=== PATIENT | male | born 1980 | race Caucasian/White ===

== ENCOUNTER 2016-07-27 13:59 | Emergency (ER) | payer OTHER ==
[2016-07-27] MEDS ORDERED: ADACEL/BOOSTRIX VACCINE (DIPHTH/PERTUSS/ACELL/TETANUS)0.5ML SYR (90715) As Ordered ONE (14:57)
--- NOTE | 2016-07-27 15:06 | EDDOCDS ---
Nurse's Notes [facility] Name: Jayro Palacios Age: 36 yrs Sex: Male : 1980 Arrival Date: 07/27/2016 Time: 13:59 Bed PD Private MD: [facility] - Adults Diagnosis: Abrasion of left hand Presentation: 07/27 14:08 Presenting complaint: Patient states: he cut his left hand on the trunk of his car kcs about half an hour ago. Adult Sepsis Screening: The patient does not have new or worsening altered mentation. Patient's respiratory rate is less than 22. Systolic blood pressure is greater than 100. Patient has a qSOFA score of 0- Negative Sepsis Screen. Suicide/Homicide risk assessment- the patient denies having any suicidal and/or homicidal ideations and does not present with any other emotional, behavioral or mental health complaints. Status: Patient is not a elevator service mechanic or dependent. Transition of care: patient was not received from another setting of care. 14:08 Acuity: RAYMON Level 4 kcs 14:08 Method Of Arrival: Walkin/Carried/Asstd kcs Triage Assessment: 14:10 General: Appears comfortable, well developed, well nourished, well groomed, Behavior is kcs cooperative, pleasant. Pain: Location: left hand Pain currently is 10 out of 10 on a pain scale. HIV screening NA for this visit Offered previously. Neurological: Level of Consciousness is awake, alert. Respiratory: Airway is patent Respiratory effort is even, unlabored, Respiratory pattern is regular, symmetrical. Derm: Skin is intact, is healthy with good turgor, Skin is dry, Skin is normal. Injury Description: Laceration sustained to base of left index finger is not bleeding. Historical: - Allergies: PENICILLINS (Anaphylaxis); - Home Meds: 1. Albuterol MDI PRN last use 2 weeks ago 2. Keppra 1,000 mg Oral tab 1 tab tid - PMHx: Asthma; Bipolar disorder; Seizure Disorder; - PSHx: none; - Immunization history:: Last tetanus immunization: unknown. - Family history: Not pertinent. - Social history: Smoking status: Patient uses tobacco products, heavy tobacco smoker. No barriers to communication noted, The patient speaks fluent Setswana. - : The pt / caregiver states he / she is not on anticoagulants. Home medication list is obtained from the patient, [employer] import data. - Exposure Risk Screening:: None identified. Screenin:04 Screening information is obtained from the patient. Fall risk: No risks identified. bcj Assistance ADL's: requires no assistance with activities of daily living. Abuse/DV Screen: The patient / caregiver reports he/she is: not in a situation that causes fear, pain or injury. Nutritional screening: No deficits noted. Advance Directives: Currently, there is no health care proxy. home support is adequate. Assessment: 15:04 General: Appears in no apparent distress. bcj Vital Signs: 14:01 BP 162 / 79; Pulse 89; Resp 20; Temp 97.9(O); Pulse Ox 97% ; Weight 81.65 kg; Height 6 cmb ft. 0 in. (182.88 cm); Pain 10/10; 14:01 Body Mass Index 24.41 (81.65 kg, 182.88 cm) cmb Vitals: 14:01 Log In Time: July 27, 2016 at 13:59. cmb ED Course: 14:00 Patient visited by Alysia Patiño. cmb 14:00 Patient moved to Waiting cmb 14:01 [facility] is Private Physician. cmb 14:02 Patient moved to Pre RCE cmb 14:09 Triage Initiated kcs 14:13 2X2 applied. kcs 14:43 Patient moved to Triage 2 ar3 14:48 Olivier Lee PA is PHCP. btw 14:48 Lyssa Kohler MD is Attending Physician. btw 14:48 Patient visited by Olivier Lee PA. btw 14:53 [facility] is Referral Physician. btw 14:58 Patient moved to PD2 / 27 btw 15:04 No apparent distress. Resting quietly. Awaiting disposition. bcj 15:04 The patient / caregiver is instructed regarding the plan of care and ED course. bcj 15:04 No IV's were initiated during this patient's visit. No procedures done that require bcj assistance. 15:05 Patient visited by Byron Mariee RN. j Administered Medications: 15:01 Drug: Tetanus- Diptheria-Acellular Pertussis 0.5 ml [diphth,pertussis(acel),tetanus 2.5 mb9 Lf unit-8 mcg-5 Lf/0.5mL IM syringe (0.5 mL)] {Informatics Physician Liaison: [employer]. Exp: 09/04/2018. Lot #: [id number]. } Route: IM; Site: left deltoid; Order Results: There are currently no results for this order. Outcome: 14:53 Discharge ordered by Provider. btw 15:04 Discharge Assessment: patient administered narcotics - no. The following [facility] Discharge criteria are identified: None. Discharged to home ambulatory. Condition: stable. Discharge instructions given to patient, Instructed on discharge instructions, follow up and referral plans. medication usage. No special radiology studies were completed. Property :Personal belongings accompany Pt. 15:05 Patient left the ED. j Signatures: Kylah Mast, RN RN Byron Barton RN RN bcj Carlee Bradshaw, OLIVING MACHINE OPERATOR OLIVING MACHINE OPERATOR ar3 Olivier Lee PA PA btw Alysia Patiño cmb Cesar Tony,RN RN mb9 MTDD
--- NOTE | 2016-07-27 15:06 | EDDOCDS ---
Physician Documentation [facility] Name: Jayro Palacios Age: 36 yrs Sex: Male : 1980 Arrival Date: 07/27/2016 Time: 13:59 Bed PD Private MD: [facility] - Adults Disposition: 07/27/16 14:53 Discharged to Home/Self Care. Impression: Abrasion of left hand. - Condition is Stable. - Discharge Instructions: Abrasion, VIS, Tetanus, Diphtheria (Td) - CDC. - Medication Reconciliation, Local Pharmacy Hours form. - Follow up: [facility] - Adults; When: Call to arrange an appointment; Reason: Wound/Symptom Recheck, Further diagnostic work-up, Recheck today's complaints, Continuance of care. - Problem is new. - Symptoms are unchanged. Historical: - Allergies: PENICILLINS (Anaphylaxis); - Home Meds: 1. Albuterol MDI PRN last use 2 weeks ago 2. Keppra 1,000 mg Oral tab 1 tab tid - PMHx: Asthma; Bipolar disorder; Seizure Disorder; - PSHx: none; - Immunization history:: Last tetanus immunization: unknown. - Family history: Not pertinent. - Social history: Smoking status: Patient uses tobacco products, heavy tobacco smoker. No barriers to communication noted, The patient speaks fluent Mozambican. - : The pt / caregiver states he / she is not on anticoagulants. Home medication list is obtained from the patient, [employer] import data. - Exposure Risk Screening:: None identified. Vital Signs: 07/27 14:01 BP 162 / 79; Pulse 89; Resp 20; Temp 97.9(O); Pulse Ox 97% ; Weight 81.65 kg / 180.01 cmb lbs; Height 6 ft. 0 in. (182.88 cm); Pain 10/10; 14:01 Body Mass Index 24.41 (81.65 kg, 182.88 cm) cmb MDM: 14:53 Tetanus- Diptheria-Acellular Pertussis 0.5 ml IM once; Routine booster 10-64yrs, >64 btw with child contact [employer] ordered. 15:05 Financial registration complete. lg Administered Medications: 15:01 Drug: Tetanus- Diptheria-Acellular Pertussis 0.5 ml [diphth,pertussis(acel),tetanus 2.5 mb9 Lf unit-8 mcg-5 Lf/0.5mL IM syringe (0.5 mL)] {Director Long Term Care: [employer]. Exp: 09/04/2018. Lot #: [id number]. } Route: IM; Site: left deltoid; Signatures: Kylah Mast RN RN Byron Barton RN RN Chidi Leary, Olivier Nick lg, PA PA btw Belles, Michael RN mb9 MTDD
--- NOTE | 2016-07-29 16:07 | EDDOCDS ---
Physician Documentation [facility] Name: Jayro Palacios Age: 36 yrs Sex: Male : 1980 Arrival Date: 07/27/2016 Time: 13:59 Bed PD Private MD: [facility] - Adults Disposition: 07/27/16 14:53 Discharged to Home/Self Care. Impression: Abrasion of left hand. - Condition is Stable. - Discharge Instructions: Abrasion, VIS, Tetanus, Diphtheria (Td) - CDC. - Medication Reconciliation, Local Pharmacy Hours form. - Follow up: [facility] - Adults; When: Call to arrange an appointment; Reason: Wound/Symptom Recheck, Further diagnostic work-up, Recheck today's complaints, Continuance of care. - Problem is new. - Symptoms are unchanged. Historical: - Allergies: PENICILLINS (Anaphylaxis); - Home Meds: 1. Albuterol MDI PRN last use 2 weeks ago 2. Keppra 1,000 mg Oral tab 1 tab tid - PMHx: Asthma; Bipolar disorder; Seizure Disorder; - PSHx: none; - Immunization history:: Last tetanus immunization: unknown. - Family history: Not pertinent. - Social history: Smoking status: Patient uses tobacco products, heavy tobacco smoker. No barriers to communication noted, The patient speaks fluent [place]. - : The pt / caregiver states he / she is not on anticoagulants. Home medication list is obtained from the patient, [employer] import data. - Exposure Risk Screening:: None identified. Vital Signs: 07/27 14:01 BP 162 / 79; Pulse 89; Resp 20; Temp 97.9(O); Pulse Ox 97% ; Weight 81.65 kg / 180.01 cmb lbs; Height 6 ft. 0 in. (182.88 cm); Pain 10/10; 14:01 Body Mass Index 24.41 (81.65 kg, 182.88 cm) cmb MDM: 14:53 Tetanus- Diptheria-Acellular Pertussis 0.5 ml IM once; Routine booster 10-64yrs, >64 btw with child contact [employer] ordered. 15:05 Financial registration complete. lg 16:50 [facility] Payment Agreement was scanned into [employer] and attached to record. lg 07/28 09:43 T-Sheet-- Draft Copy was scanned into [employer] and attached to record. gb Administered Medications: 07/27 15:01 Drug: Tetanus- Diptheria-Acellular Pertussis 0.5 ml [diphth,pertussis(acel),tetanus 2.5 mb9 Lf unit-8 mcg-5 Lf/0.5mL IM syringe (0.5 mL)] {Ceramic Chemist: [employer]. Exp: 09/04/2018. Lot #: [id number]. } Route: IM; Site: left deltoid; Signatures: Kylah Mast, RN RN Byron Barton RN RN bcSamara Recinos, Reg Reg gb Chidi Jaramillo, Reg Reg lg Olivier Lee PA PA btw Belles, Michael RN mb9 The chart was reviewed and I authenticate all verbal orders and agree with the evaluation and treatment provided.Attachments: 16:50 [facility] [place] Agreement 07/28 09:43 T-Sheet-- Draft Copy gb Chart Complete MTDD
--- NOTE | 2016-07-29 16:07 | EDDOCDS ---
Nurse's Notes [facility] Name: Jayro Palacios Age: 36 yrs Sex: Male : 1980 Arrival Date: 07/27/2016 Time: 13:59 Bed PD Private MD: [facility] - Adults Diagnosis: Abrasion of left hand Presentation: 07/27 14:08 Presenting complaint: Patient states: he cut his left hand on the trunk of his car kcs about half an hour ago. Adult Sepsis Screening: The patient does not have new or worsening altered mentation. Patient's respiratory rate is less than 22. Systolic blood pressure is greater than 100. Patient has a qSOFA score of 0- Negative Sepsis Screen. Suicide/Homicide risk assessment- the patient denies having any suicidal and/or homicidal ideations and does not present with any other emotional, behavioral or mental health complaints. Status: Patient is not a patient services coordinator or dependent. Transition of care: patient was not received from another setting of care. 14:08 Acuity: RAYMON Level 4 kcs 14:08 Method Of Arrival: Walkin/Carried/Asstd kcs Triage Assessment: 14:10 General: Appears comfortable, well developed, well nourished, well groomed, Behavior is kcs cooperative, pleasant. Pain: Location: left hand Pain currently is 10 out of 10 on a pain scale. HIV screening NA for this visit Offered previously. Neurological: Level of Consciousness is awake, alert. Respiratory: Airway is patent Respiratory effort is even, unlabored, Respiratory pattern is regular, symmetrical. Derm: Skin is intact, is healthy with good turgor, Skin is dry, Skin is normal. Injury Description: Laceration sustained to base of left index finger is not bleeding. Historical: - Allergies: PENICILLINS (Anaphylaxis); - Home Meds: 1. Albuterol MDI PRN last use 2 weeks ago 2. Keppra 1,000 mg Oral tab 1 tab tid - PMHx: Asthma; Bipolar disorder; Seizure Disorder; - PSHx: none; - Immunization history:: Last tetanus immunization: unknown. - Family history: Not pertinent. - Social history: Smoking status: Patient uses tobacco products, heavy tobacco smoker. No barriers to communication noted, The patient speaks fluent Tajik. - : The pt / caregiver states he / she is not on anticoagulants. Home medication list is obtained from the patient, [employer] import data. - Exposure Risk Screening:: None identified. Screenin:04 Screening information is obtained from the patient. Fall risk: No risks identified. bcj Assistance ADL's: requires no assistance with activities of daily living. Abuse/DV Screen: The patient / caregiver reports he/she is: not in a situation that causes fear, pain or injury. Nutritional screening: No deficits noted. Advance Directives: Currently, there is no health care proxy. home support is adequate. Assessment: 15:04 General: Appears in no apparent distress. bcj Vital Signs: 14:01 BP 162 / 79; Pulse 89; Resp 20; Temp 97.9(O); Pulse Ox 97% ; Weight 81.65 kg; Height 6 cmb ft. 0 in. (182.88 cm); Pain 10/10; 14:01 Body Mass Index 24.41 (81.65 kg, 182.88 cm) cmb Vitals: 14:01 Log In Time: July 27, 2016 at 13:59. cmb ED Course: 14:00 Patient visited by Alysia Patiño. cmb 14:00 Patient moved to Waiting cmb 14:01 [facility] is Private Physician. cmb 14:02 Patient moved to Pre RCE cmb 14:09 Triage Initiated kcs 14:13 2X2 applied. kcs 14:43 Patient moved to Triage 2 ar3 14:48 Olivier Lee PA is PHCP. btw 14:48 Lyssa Kohler MD is Attending Physician. btw 14:48 Patient visited by Olivier Lee PA. btw 14:53 [facility] is Referral Physician. btw 14:58 Patient moved to PD2 / 27 btw 15:04 No apparent distress. Resting quietly. Awaiting disposition. bcj 15:04 The patient / caregiver is instructed regarding the plan of care and ED course. bcj 15:04 No IV's were initiated during this patient's visit. No procedures done that require bcj assistance. 15:05 Patient visited by Byron Mariee RN. bcj 16:50 [facility] Payment Agreement was scanned into [employer] and attached to record. 01 09:43 T-Sheet-- Draft Copy was scanned into [employer] and attached to record. gb Administered Medications: 07/27 15:01 Drug: Tetanus- Diptheria-Acellular Pertussis 0.5 ml [diphth,pertussis(acel),tetanus 2.5 mb9 Lf unit-8 mcg-5 Lf/0.5mL IM syringe (0.5 mL)] {Reel Winder: [employer]. Exp: 09/04/2018. Lot #: [id number]. } Route: IM; Site: left deltoid; Order Results: There are currently no results for this order. Outcome: 14:53 Discharge ordered by Provider. btw 15:04 Discharge Assessment: patient administered narcotics - no. The following High Risk [facility] Discharge criteria are identified: None. Discharged to home ambulatory. Condition: stable. Discharge instructions given to patient, Instructed on discharge instructions, follow up and referral plans. medication usage. No special radiology studies were completed. Property :Personal belongings accompany Pt. 15:05 Patient left the ED. [facility] Signatures: Kylah Mast RN RN Byron Barton RN RN bcj Samara Chang, Reg Reg gb Chidi Jaramillo, Reg Reg lg Carlee Bradshaw, MICROGRINDER OPERATOR MICROGRINDER OPERATOR ar3 Olivier Lee PA PA btw Alysia Patiño cmb Cesar Tony,RN RN mb9 Chart Complete MTDD
--- NOTE | 2016-07-29 16:07 | EDDOCDS ---
Physician Documentation [facility] Name: Jayro Palacios Age: 36 yrs Sex: Male : 1980 Arrival Date: 07/27/2016 Time: 13:59 Bed PD Private MD: [facility] - Adults Disposition: 07/27/16 14:53 Discharged to Home/Self Care. Impression: Abrasion of left hand. - Condition is Stable. - Discharge Instructions: Abrasion, VIS, Tetanus, Diphtheria (Td) - CDC. - Medication Reconciliation, Local Pharmacy Hours form. - Follow up: [facility] - Adults; When: Call to arrange an appointment; Reason: Wound/Symptom Recheck, Further diagnostic work-up, Recheck today's complaints, Continuance of care. - Problem is new. - Symptoms are unchanged. Historical: - Allergies: PENICILLINS (Anaphylaxis); - Home Meds: 1. Albuterol MDI PRN last use 2 weeks ago 2. Keppra 1,000 mg Oral tab 1 tab tid - PMHx: Asthma; Bipolar disorder; Seizure Disorder; - PSHx: none; - Immunization history:: Last tetanus immunization: unknown. - Family history: Not pertinent. - Social history: Smoking status: Patient uses tobacco products, heavy tobacco smoker. No barriers to communication noted, The patient speaks fluent Taiwanese. - : The pt / caregiver states he / she is not on anticoagulants. Home medication list is obtained from the patient, [employer] import data. - Exposure Risk Screening:: None identified. Vital Signs: 07/27 14:01 BP 162 / 79; Pulse 89; Resp 20; Temp 97.9(O); Pulse Ox 97% ; Weight 81.65 kg / 180.01 cmb lbs; Height 6 ft. 0 in. (182.88 cm); Pain 10/10; 14:01 Body Mass Index 24.41 (81.65 kg, 182.88 cm) cmb MDM: 14:53 Tetanus- Diptheria-Acellular Pertussis 0.5 ml IM once; Routine booster 10-64yrs, >64 btw with child contact [employer] ordered. 15:05 Financial registration complete. lg 16:50 [facility] Payment Agreement was scanned into [employer] and attached to record. lg 07/28 09:43 T-Sheet-- Draft Copy was scanned into [employer] and attached to record. gb Administered Medications: 07/27 15:01 Drug: Tetanus- Diptheria-Acellular Pertussis 0.5 ml [diphth,pertussis(acel),tetanus 2.5 mb9 Lf unit-8 mcg-5 Lf/0.5mL IM syringe (0.5 mL)] {Bone Char Operator: [employer]. Exp: 09/04/2018. Lot #: [id number]. } Route: IM; Site: left deltoid; Signatures: Kylah Mast, RN RN Byron Barton RN RN bcSamara Recinos, Reg Reg gb Chidi Jaramillo, Reg Reg lg Olivier Lee PA PA btw Belles, Michael RN mb9 The chart was reviewed and I authenticate all verbal orders and agree with the evaluation and treatment provided.Attachments: 16:50 [facility] Payment Agreement 07/28 09:43 T-Sheet-- Draft Copy gb Chart Complete MTDD
== END 2016-07-27 15:05 | disposition home or self-care (01) ==
LOC: M ED 13:59
DX: S60.512A Abrasion of left hand, initial encounter (principal); W22.8XXA Striking against or struck by other objects, initial encounter; Y92.019 Unspecified place in single-family (private) house as the place of occurrence of the external cause; Y93.89 Activity, other specified; Y99.8 Other external cause status; J45.909 Unspecified asthma, uncomplicated; F31.9 Bipolar disorder, unspecified; G40.909 Epilepsy, unspecified, not intractable, without status epilepticus; F17.210 Nicotine dependence, cigarettes, uncomplicated; Z79.899 Other long term (current) drug therapy; Z79.51 Long term (current) use of inhaled steroids; Z88.0 Allergy status to penicillin

== ENCOUNTER 2016-10-16 21:04 | Emergency (ER) | payer OTHER ==
[~2016-10-16] VITALS: Ht 182.9 cm; Wt 81.6 kg
[2016-10-16] MEDS ORDERED: TEMA30CA (21:11)
[2016-10-16] MEDS ORDERED: LATU40TA (21:11)
[2016-10-16] MEDS ORDERED: FLUORESCEIN OPHTH 1 MG STRIP OS ONE (21:45)
[2016-10-16] MEDS ORDERED: TETRACAINE 0.5% OPHTH SOLN 4ML OS ONE (21:45)
[2016-10-16] MEDS ORDERED: GENT0.3O3 OS (22:26)
[2016-10-16] MEDS ORDERED: IBUPROFEN 800 MG TAB PO ONE (22:30)
[2016-10-16] MEDS ORDERED: ACETAMINOPHEN 325 MG TAB PO ONE (22:30)
[2016-10-16] MEDS ORDERED: GENTAMICIN 0.3% OPHTH OINT 3.5 GM XX ONE (22:45)
[2016-10-16 22:56] VITALS: BP 139/71
== END 2016-10-16 23:06 | disposition home or self-care (01) ==
LOC: M ED 22:00
DX: H10.9 Unspecified conjunctivitis (principal); F17.210 Nicotine dependence, cigarettes, uncomplicated; Z88.0 Allergy status to penicillin

== ENCOUNTER 2016-10-30 21:59 | Emergency (ER) | payer OTHER ==
[~2016-10-30] VITALS: Ht 182.9 cm; Wt 95.3 kg
[~2016-10-30 21:59] MED LIST: GENT0.3O3 OS; LATU40TA; TEMA30CA
[2016-10-30] MEDS ORDERED: CIPR500T3 (22:07)
[2016-10-30] MEDS ORDERED: ZOLP10TA2 (22:07)
[2016-10-30] MEDS ORDERED: KEPP1000 (22:07)
[2016-10-30] MEDS ORDERED: levETIRAcetam INJection 1,000 MG in D5W 100 ML IV ONE (23:00)
[2016-10-31] MEDS ORDERED: KEPP1000 PO (00:22)
[2016-10-31 00:26] VITALS: BP 125/78
== END 2016-10-31 00:40 | disposition home or self-care (01) ==
LOC: M ED 22:44
DX: G40.309 Generalized idiopathic epilepsy and epileptic syndromes, not intractable, without status epilepticus (principal); Z91.14 Patient's other noncompliance with medication regimen; F17.210 Nicotine dependence, cigarettes, uncomplicated; Z88.0 Allergy status to penicillin; Z79.899 Other long term (current) drug therapy

== ENCOUNTER 2016-11-15 07:56 | Emergency (ER) | payer OTHER ==
[~2016-11-15] VITALS: Ht 182.9 cm; Wt 95.3 kg
[~2016-11-15 07:56] MED LIST changes: +CIPR500T3; +KEPP1000; +KEPP1000 PO; +ZOLP10TA2
[2016-11-15] MEDS ORDERED: PROA1AER INH (08:05)
--- NOTE | 2016-11-15 09:25 | REP ---
LEFT KNEE, FIVE VIEWS: There is no evidence of an acute fracture, dislocation or intrinsic bone disease. IMPRESSION: No fracture or dislocation. Signed by Ezequiel Shay MD 11/15/2016 08:06 P
[2016-11-15] MEDS ORDERED: NAPR500T PO (09:35)
[2016-11-15 09:39] VITALS: BP 128/77
== END 2016-11-15 09:41 | disposition home or self-care (01) ==
LOC: M ED 08:32
DX: M25.562 Pain in left knee (principal); J45.909 Unspecified asthma, uncomplicated; F31.9 Bipolar disorder, unspecified; R56.9 Unspecified convulsions; Z88.0 Allergy status to penicillin; Z79.899 Other long term (current) drug therapy; Z79.2 Long term (current) use of antibiotics

== ENCOUNTER → 2017-10-14 | Outpatient (CLI) | payer OTHER | LOC: M PAIN 14:00 | DX: M54.9 Dorsalgia, unspecified (principal); G89.29 Other chronic pain; M79.1 Myalgia; J45.909 Unspecified asthma, uncomplicated; R56.9 Unspecified convulsions; F17.210 Nicotine dependence, cigarettes, uncomplicated; Z79.899 Other long term (current) drug therapy; Z88.0 Allergy status to penicillin | CPT/HCPCS: G0463 ==

== ENCOUNTER → 2017-11-03 | Outpatient (CLI) | payer OTHER ==
[~2017-11-03] MED LIST changes: +BUPIVACAINE HCL 0.25% 10 ML VIAL As Ordered; +BUPIVACAINE HCL 0.25% 30 ML VIAL As Ordered; -CIPR500T3; -GENT0.3O3 OS; -KEPP1000; -KEPP1000 PO; -LATU40TA; -TEMA30CA; +TRIAMCINOLONE ACETONIDE SUSP 40 MG/ML VIAL (J3301) As Ordered; -ZOLP10TA2; +diazePAM 5 MG TAB As Ordered; +oxyCODONE 5MG TAB As Ordered
== END ==
LOC: M PAIN 14:45
DX: G89.29 Other chronic pain (principal); M79.1 Myalgia; M54.6 Pain in thoracic spine; M54.5 Low back pain; J45.909 Unspecified asthma, uncomplicated; R56.9 Unspecified convulsions; F17.210 Nicotine dependence, cigarettes, uncomplicated; Z79.899 Other long term (current) drug therapy; Z88.0 Allergy status to penicillin
CPT/HCPCS: J3301

== ENCOUNTER → 2017-12-01 | Outpatient (CLI) | payer MEDICAID | LOC: M OUTALCOH 08:15 | DX: F12.10 Cannabis abuse, uncomplicated (principal) ==

== ENCOUNTER 2017-12-09 15:51 | Outpatient (RCR) | payer MEDICAID | END 2017-12-22 | LOC: M OUTALCOH 15:51 | DX: F12.10 Cannabis abuse, uncomplicated (principal); F17.200 Nicotine dependence, unspecified, uncomplicated ==

== ENCOUNTER 2018-01-04 11:40 | Emergency (ER) | payer OTHER, MEDICAID | END 2018-01-04 14:14 | disposition left against medical advice (07) | LOC: M ED 11:40 | DX: H92.09 Otalgia, unspecified ear (principal); Z53.21 Procedure and treatment not carried out due to patient leaving prior to being seen by health care provider ==

== ENCOUNTER → 2018-01-11 | Outpatient (CLI) | payer OTHER | LOC: M PAIN 13:00 | DX: M79.1 Myalgia (principal); M54.6 Pain in thoracic spine; F17.210 Nicotine dependence, cigarettes, uncomplicated; Z79.899 Other long term (current) drug therapy; Z88.0 Allergy status to penicillin | CPT/HCPCS: G0463 ==

== ENCOUNTER 2018-01-12 07:35 | Outpatient (RCR) | payer OTHER | END 2018-01-21 | LOC: M PT 07:35 | DX: Z51.89 Encounter for other specified aftercare (principal); M79.1 Myalgia; M54.6 Pain in thoracic spine | CPT/HCPCS: 97010 ==

== ENCOUNTER → 2018-06-28 | Outpatient (CLI) | payer OTHER ==
[~2018-06-28] MED LIST changes: -BUPIVACAINE HCL 0.25% 10 ML VIAL As Ordered; -BUPIVACAINE HCL 0.25% 30 ML VIAL As Ordered; +CIPR500T3; +GENT0.3O3 OS; +HYDR50TA70 PO; +KEPP10002; +KEPP10002 PO; +LATU40TA; +NAPR-49 PO; +PROAAER10 INH; +TEMA30CA; -TRIAMCINOLONE ACETONIDE SUSP 40 MG/ML VIAL (J3301) As Ordered; +ZOLP10TA2; -diazePAM 5 MG TAB As Ordered; -oxyCODONE 5MG TAB As Ordered
--- NOTE | 2018-07-20 00:26 | ECWPNPC ---
PATIENT NAME: PAULINA VUONG : 1980 GENDER: MALE VISIT DATE: 06/28/2018 DISCHARGE DATE: 06/28/18 1158 VISIT LOCKED DATE TIME: PHYSICIAN: BRIANA LOBO RESOURCE: BRIANA LOBO REASON FOR APPOINTMENT 1. BACK HISTORY OF PRESENT ILLNESS HISTORY OF PRESENT ILLNESS: HERE FOR F/U OF CHRONIC LOW BACK AND THORACIC PAIN.LAST VISIT WAS IN NOVEMBER.STATES HE WAS HAVING SCHEDULING ISSUES W OUR CLINIC.HAD A FLARE UP OF PAIN IN AND HAD IMAGING STUDIES IN OF LUMBAR AND THORACIC SPINE.RATING PAIN VAS 10/10. PAIN THE PATIENT DESCRIBES THE PAIN... FALL RISK SCREENING: SCREENING :NO FALLS IN THE PAST YEAR CURRENT MEDICATIONS TAKING HYDROXYZINE HCL 50 MG TABLET ORALLY THREE TIMES DAILY TAKING MOBIC 15 MG TABLET 1 TABLET ORALLY ONCE A DAY, NOTES: RAN OUT TAKING ROBAXIN-750 750 MG TABLET 1 TABLET ORALLY DAILY PRN 15 TAB SHOULD LAST 30 DAYS, NOTES: RAN OUT TAKING SEROQUEL 100 MG TABLET 1 TABLET ORALLY ONCE A DAY NOT-TAKING VENTOLIN HFA 108 (90 BASE) MCG/ACT AEROSOL SOLUTION 2 PUFFS NEEDED INHALATION EVERY 4 HRS, NOTES: NONE NOT-TAKING KEPPRA 1000 MG TABLET 1 TAB ORALLY THREE TIMES DAILY NOT-TAKING GABAPENTIN 300 MG CAPSULE 1 CAPSULE ORALLY TID NOT-TAKING NAPROXEN 375 MG TABLET 1 TABLET WITH FOOD OR MILK NEEDED ORALLY EVERY 12 HRS MEDICATION LIST REVIEWED AND RECONCILED WITH THE PATIENT PAST MEDICAL HISTORY ASTHMA BACK PAIN SEIZURE DISORDER ALLERGIES PENICILLIN (FOR ALLERGIES USE ONLY): ANAPHYLAXIS: ALLERGY SURGICAL HISTORY NO SURGICAL HISTORY DOCUMENTED. FAMILY HISTORY FATHER: UNKNOWN MOTHER: UNKNOWN SIBLINGS: UNKNOWN DAUGHTER(S): ALIVE 1 SON(S) , 1 DAUGHTER(S) - HEALTHY. ADOPTED BY GRANDMOTHER, NO KNOWLEDGE OF FAMILY HISTORY. SOCIAL HISTORY GENERAL: TOBACCO USE ARE YOU A:CURRENT SMOKER ARE YOU INTERESTED IN QUITTING?NOT READY TO QUIT COUNSELED THE PATIENT ON SMOKING EFFECTS, EDUCATION [id number]/05/2018 HOW MANY CIGARETTES A DAY DO YOU SMOKE?6-10 HOW SOON AFTER YOU WAKE UP DO YOU SMOKE YOUR FIRST CIGARETTE?6-30 MIN HOW OFTEN DO YOU SMOKE CIGARETTES?EVERY DAY PATIENT COUNSELED ON THE DANGERS OF TOBACCO USE AND URGED TO QUIT:06/28/2018 BMI CARE GOAL FOLLOW-UP ABOVE NORMAL [facility] REG[facility]ING DIET ALCOHOL SCREENING DID YOU HAVE A DRINK CONTAINING ALCOHOL IN THE PAST YEAR?NO POINTS0 INTERPRETATIONNEGATIVE RECREATIONAL DRUG USE DRUG USE?NO CAFFEINE CAFFEINE USE?YES SEXUAL HX HAD SEX IN THE LAST 12 MONTHS (VAGINAL, ORAL, OR ANAL)?YES WITHWOMEN ONLY HIV / HEP-C SCREENING HIV TEST OFFERED TO PATIENT:YES DATE OFFERED:01/04/2017 TEST ACCEPTED:YES ISLAM [id number] FAITH NO MORMON BELIEFS THAT WOULD IMPACT HEALTH CARE. LANGUAGE LANGUAGES SPOKEN:[place]ORE[place] EDUCATION LEVEL OF EDUCATION:HIGH SCHOOL LEARNING BARRIERS / SPECIAL NEEDS CHANGE FROM LAST VISIT?YES BARRIERS TO LEARNING?NO HEARING IMPAIRED?NO VISION IMPAIRED?NO COGNITIVELY IMPAIRED?NO READINESS TO LEARN?YES LEARNING PREFERENCES?NO LEARNING CAPABILITIES PRESENT?YES EMOTIONAL BARRIERS?NO SPECIAL DEVICES?NO TRANSIT MAN NEEDED?NO OCCUPATION: UNEMPLOYED. DIET: REGULAR. EXERCISE: NO REGULAR EXERCISE. MARITAL STATUS: SINGLE. OTHERS AT HOME: NONE. PAIN CLINIC PFS, CLERGY, PUBLIC HEALTH REFERRALS HAS THE PATIENT BEEN EDUCATED REGARDING HIS/HER PLAN OF CARE?YES REVIEWED TPI PROCEDURE WITH PATIENT. 4-18 CM HAS THE PATIENT BEEN EDUCATED REGARDING PAIN, THE RISK FOR PAIN, THE IMPORTANCE OF EFFECTIVE PAIN MANAGEMENT, AND THE PAIN ASSESSMENT PROCESS?YES ADVANCE DIRECTIVE ADVANCE DIRECTIVE DISCUSSED WITH PATIENT:YES DECLINED HCP INFORMATION AT THIS TIME. REVIEWED 10/12/17 1400 LASREVIEWED WITH PATIENT 06/28/18 1051 JS. HOSPITALIZATION/MAJOR DIAGNOSTIC PROCEDURE NO HOSPITALIZATION HISTORY. REVIEW OF SYSTEMS REVIEWED BY: PROVIDER: BRIANA CHAN . CONSTITUTIONAL: ANY CHANGE IN YOUR MEDICAL CONDITION? YES, STATES CHANGES SHOWN IN XRAY, CT, AND MRI OF SPINE . CHILLS NO . FEVER NO . INFECTION: DO YOU HAVE NEW INFECTIONS? NO . DO YOU HAVE HISTORY OF MRSA? NO . MUSCULOSKELETAL: ANY NEW PATTERNS OF PAIN OR NUMBNESS? YES, STATES NEW PAIN TO LEFT SHOULDER. PATIENT STATES PAIN 10/10 AT THIS TIME TO UPPER, MID, AND LOWER BACK . GASTROENTEROLOGY: ANY NEW CHANGE IN BOWEL CONTROL? NO . GENITOURINARY: ANY NEW CHANGE IN BLADDER CONTROL? NO . IS THERE A CHANCE YOU COULD BE ? NO . HEMATOLOGY/LYMPH: DO YOU TAKE ANY BLOOD THINNERS? (FOR EXAMPLE- COUMADIN, PLAVIX, AGGRENOX, PLATEL, PRADAXA, OR XARELTO) NO . WHEN WAS YOUR LAST DOSE? DATE: TIME: . NEUROLOGY: HAVE YOU FALLEN IN THE PAST 6 MONTHS? YES, STATES HIS KNEES GAVE OUT AND FELL. STATES HE HIT HIS HEAD BUT DID NOT GO TO ED AND HAD NO IMAGING DONE . ANY NEW EXTREMITY NUMBNESS OR WEAKNESS? YES, NEW WEAKNESS TO LEFT SHOULDER AND ARM . CARDIOLOGY: DO YOU HAVE A PACEMAKER OR DEFIBRILLATOR? NO . RESPIRATORY: HAVE YOU BEEN SICK IN THE PAST WEEK? NO . FEVER NO . FLU LIKE SYMPTOMS? NO . COUGH NO . INTEGUMENTARY: DO YOU HAVE ANY RASHES OR OPEN SORES? NO . ALLERGIC/IMMUNO: ARE YOU ALLERGIC TO SHELLFISH OR IV DYE? NO . ANY NEW ALLERGIES? NO . PSYCHIATRIC: DO YOU HAVE THOUGHTS OF HURTING YOURSELF OR SOMEONE ELSE? NO . ARE YOU ABUSED, NEGLECTED, OR IN AN UNSAFE ENVIRONMENT? NO . ENDOCRINOLOGY: ARE YOU DIABETIC? NO . OTHER: DO YOU NEED ANY PRESCRIPTIONS? NO . IF YES, PLEASE LIST: ____ . ANY NEW PROBLEMS WITH YOUR MEDICATIONS? NO . WHEN DID YOU LAST EAT? ____ . WHEN DID YOU LAST DRINK? ____ . WHAT DID YOU LAST DRINK? ____ . NAME OF PERSON DRIVING YOU HOME? ____ . DO YOU HAVE ANY OTHER QUESTIONS OR CONCERNS NO . VITAL SIGNS WT 220.6 LBS, HT 72 IN, BMI 29.92 INDEX, BP 131/78 MM HG, HR 86 /MIN, RR 18 /MIN, TEMP 96.7 F, OXYGEN SAT % 99%, SAFE IN ENV? (Y/N) YES, NA INITIALS AW 1043, REVIEWED BY: FLORECITA. EXAMINATION GENERAL EXAMINATION: GENERAL APPEARANCE:AWAKE,ALERT ,PLEAASANT . PSYCHAFFECT NORMAL . LUNGS:LUNG WOODY ARE CLEAR TO AUSCULTATION BILATERALLY. GOOD MOVEMENT OF AIR . HEART:S1, S2 IN A REGULAR RATE AND RHYTHM. NO SIGNIFICANT MURMURS, RUBS OR GALLOPS NOTED . LUMBAR SACRAL SPINESPECIFIC POINT TENDERNESS OVER BILAT. SIJ. 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 SIJ. PREVENTIVE MEDICINE PAIN CLINIC TEACHING: PROCEDURE TEACHING GAVE PATIENT PRINT-OUT ON SACROILIAC JOINT INJECTION INFORMATION AND REVIEWED WITH PATIENT. ALSO REVIEWED PRE-PROCEDURE INSTRUCTIONS WIT PATIENT. PATIENT VERBALIZED AN UNDERSTANDING. ALEKS HO 06/28/2018 12:07:39 PM > . PROCEDURE CODES FA211 ESTABILISHED PATIENT [facility] CHARGE DISPOSITION & COMMUNICATION FOLLOW UP POST (REASON: BILAT. SIJ) ELECTRONICALLY SIGNED BY DUSTIN GRACIA ON 07/19/2018 AT 09:02 AM EST DISCLAIMER : THIS IS A VISIT SUMMARY EXTRACTED FROM THE [employer] CHART. IT IS NOT A COPY OF THE [employer] PROGRESS NOTE. [place]
== END ==
LOC: M PAIN 11:30
PROVIDERS: ATTEND Nurse Practitioner Family
DX: M46.1 Sacroiliitis, not elsewhere classified (principal); M51.26 Other intervertebral disc displacement, lumbar region; G89.29 Other chronic pain; J45.909 Unspecified asthma, uncomplicated; R56.9 Unspecified convulsions; F17.210 Nicotine dependence, cigarettes, uncomplicated; Z79.899 Other long term (current) drug therapy; Z88.0 Allergy status to penicillin

== ENCOUNTER → 2018-08-01 | Outpatient (CLI) | payer OTHER ==
[~2018-08-01] MED LIST changes: +BUPIVACAINE HCL 0.25% 30 ML VIAL As Ordered ONE; +ISOVUE-M 300 61% 15ML VIAL (Q9967) As Ordered ONE; +LIDOCAINE 1% SDV INJ 30 ML VIAL As Ordered ONE; -NAPR-49 PO; +NAPR-50 PO; +TRIAMCINOLONE ACETONIDE SUSP 40 MG/ML VIAL (J3301) As Ordered ONE; +diazePAM 5 MG TAB As Ordered ONE; +oxyCODONE 5MG TAB As Ordered ONE
--- NOTE | 2018-08-01 13:36 | REP ---
SI JOINT SERIES: Bilateral study four views. HISTORY: Bilateral SI joint injection for pain. 20 seconds of fluoroscopy time is reported. FINDINGS: A sequence of four last image hold fluoroscopically obtained spot radiographs of the SI joints document needle position and contrast injection. Electronically Signed by Rinku Dudley MD 08/01/2018 01:51 P
--- NOTE | 2018-08-16 01:20 | ECWPNPC ---
PATIENT NAME: PAULINA VUONG : 1980 GENDER: MALE VISIT DATE: 08/01/2018 DISCHARGE DATE: 08/01/18 1047 VISIT LOCKED DATE TIME: PHYSICIAN: DILSHAD ESPARZA MD RESOURCE: DILSHAD ESPARZA MD REASON FOR APPOINTMENT 1. BILAT. SIJ HISTORY OF PRESENT ILLNESS HISTORY OF PRESENT ILLNESS: PAIN THE PATIENT DESCRIBES THE PAIN... FALL RISK SCREENING: SCREENING :NO FALLS IN THE PAST YEAR CURRENT MEDICATIONS TAKING HYDROXYZINE HCL 50 MG TABLET ORALLY THREE TIMES DAILY, NOTES: 08/01/18 0430 TAKING SEROQUEL 100 MG TABLET 1 TABLET ORALLY ONCE A DAY, NOTES: 07/31/18 1930 TAKING MOBIC 15 MG TABLET 1 TABLET ORALLY ONCE A DAY, NOTES: 07/31/18 1300 TAKING ROBAXIN-750 750 MG TABLET 1 TABLET ORALLY Q8H, NOTES: 07/31/18 1900 NOT-TAKING VENTOLIN HFA 108 (90 BASE) MCG/ACT AEROSOL SOLUTION 2 PUFFS NEEDED INHALATION EVERY 4 HRS, NOTES: NONE NOT-TAKING KEPPRA 1000 MG TABLET 1 TAB ORALLY THREE TIMES DAILY NOT-TAKING GABAPENTIN 300 MG CAPSULE 1 CAPSULE ORALLY TID NOT-TAKING NAPROXEN 375 MG TABLET 1 TABLET WITH FOOD OR MILK NEEDED ORALLY EVERY 12 HRS MEDICATION LIST REVIEWED AND RECONCILED WITH THE PATIENT PAST MEDICAL HISTORY ASTHMA BACK PAIN SEIZURE DISORDER ALLERGIES PENICILLIN (FOR ALLERGIES USE ONLY): ANAPHYLAXIS: ALLERGY SURGICAL HISTORY NO SURGICAL HISTORY DOCUMENTED. FAMILY HISTORY FATHER: UNKNOWN MOTHER: UNKNOWN SIBLINGS: UNKNOWN DAUGHTER(S): ALIVE 1 SON(S) , 1 DAUGHTER(S) - HEALTHY. ADOPTED BY GRANDMOTHER, NO KNOWLEDGE OF FAMILY HISTORY. SOCIAL HISTORY GENERAL: TOBACCO USE ARE YOU A:CURRENT SMOKER HOW OFTEN DO YOU SMOKE CIGARETTES?EVERY DAY HOW SOON AFTER YOU WAKE UP DO YOU SMOKE YOUR FIRST CIGARETTE?6-30 MIN HOW MANY CIGARETTES A DAY DO YOU SMOKE?6-10 ARE YOU INTERESTED IN QUITTING?NOT READY TO QUIT PATIENT COUNSELED ON THE DANGERS OF TOBACCO USE AND URGED TO QUIT:06/28/2018 COUNSELED THE PATIENT ON SMOKING EFFECTS, EDUCATION [id number]/05/2018 BMI CARE GOAL FOLLOW-UP ABOVE NORMAL BMI FOLLOW-UPLIFESTYLE EDUCATION REGARDING DIET ALCOHOL SCREENING DID YOU HAVE A DRINK CONTAINING ALCOHOL IN THE PAST YEAR?NO POINTS0 INTERPRETATIONNEGATIVE RECREATIONAL DRUG USE DRUG USE?NO CAFFEINE CAFFEINE USE?YES SEXUAL HX HAD SEX IN THE LAST 12 MONTHS (VAGINAL, ORAL, OR ANAL)?YES WITHWOMEN ONLY HIV / HEP-C SCREENING HIV TEST OFFERED TO PATIENT:YES DATE OFFERED:01/04/2017 TEST ACCEPTED:YES CONGREGATION [id number] YAZIDISM NO MANDAEN BELIEFS THAT WOULD IMPACT HEALTH CARE. LANGUAGE LANGUAGES SPOKEN:CHINESE EDUCATION LEVEL OF EDUCATION:HIGH SCHOOL LEARNING BARRIERS / SPECIAL NEEDS CHANGE FROM LAST VISIT?YES BARRIERS TO LEARNING?NO HEARING IMPAIRED?NO VISION IMPAIRED?NO COGNITIVELY IMPAIRED?NO READINESS TO LEARN?YES LEARNING PREFERENCES?NO LEARNING CAPABILITIES PRESENT?YES EMOTIONAL BARRIERS?NO SPECIAL DEVICES?NO DIRECTOR OF OPERATIONS NEEDED?NO OCCUPATION: UNEMPLOYED. DIET: REGULAR. EXERCISE: NO REGULAR EXERCISE. MARITAL STATUS: SINGLE. OTHERS AT HOME: NONE. PAIN CLINIC PFS, CLERGY, PUBLIC HEALTH REFERRALS HAS THE PATIENT BEEN EDUCATED REGARDING HIS/HER PLAN OF CARE?YES REVIEWED TPI PROCEDURE WITH PATIENT. 11-03-17 CM HAS THE PATIENT BEEN EDUCATED REGARDING PAIN, THE RISK FOR PAIN, THE IMPORTANCE OF EFFECTIVE PAIN MANAGEMENT, AND THE PAIN ASSESSMENT PROCESS?YES ADVANCE DIRECTIVE ADVANCE DIRECTIVE DISCUSSED WITH PATIENT:YES DECLINED HCP INFORMATION AT THIS TIME. DECLINED ASSISTNACE WITH FILLING OUT FORM. 08/01/18 BV REVIEWED 10/12/17 1400 LASREVIEWED WITH PATIENT 06/28/18 1051 JSREVIEWED WITH PT. 08/01/18 0901 BV. HOSPITALIZATION/MAJOR DIAGNOSTIC PROCEDURE NO HOSPITALIZATION HISTORY. REVIEW OF SYSTEMS REVIEWED BY: PROVIDER: . CONSTITUTIONAL: ANY CHANGE IN YOUR MEDICAL CONDITION? NO . CHILLS NO . FEVER NO . INFECTION: DO YOU HAVE NEW INFECTIONS? NO . DO YOU HAVE HISTORY OF MRSA? NO . MUSCULOSKELETAL: ANY NEW PATTERNS OF PAIN OR NUMBNESS? YES, INCREASED SHOOTING PAINS THAT ORIGINATE IN LOWER BACK AND SHOOT UPWARD. . GASTROENTEROLOGY: ANY NEW CHANGE IN BOWEL CONTROL? NO . GENITOURINARY: ANY NEW CHANGE IN BLADDER CONTROL? NO . IS THERE A CHANCE YOU COULD BE ? NO . HEMATOLOGY/LYMPH: DO YOU TAKE ANY BLOOD THINNERS? (FOR EXAMPLE- COUMADIN, PLAVIX, AGGRENOX, PLATEL, PRADAXA, OR XARELTO) NO . WHEN WAS YOUR LAST DOSE? DATE: TIME: . NEUROLOGY: HAVE YOU FALLEN IN THE PAST 6 MONTHS? YES, PT HAD A NEAR FALL ABOUT 2 WEEKS AGO DUE TO LEFT KNEE GIVING OUT. DENIES ANY INJURIES OR ED VISIT. . ANY NEW EXTREMITY NUMBNESS OR WEAKNESS? NO . CARDIOLOGY: DO YOU HAVE A PACEMAKER OR DEFIBRILLATOR? NO . RESPIRATORY: HAVE YOU BEEN SICK IN THE PAST WEEK? NO . FEVER NO . FLU LIKE SYMPTOMS? NO . COUGH NO . INTEGUMENTARY: DO YOU HAVE ANY RASHES OR OPEN SORES? NO . ALLERGIC/IMMUNO: ARE YOU ALLERGIC TO SHELLFISH OR IV DYE? NO . ANY NEW ALLERGIES? NO . PSYCHIATRIC: DO YOU HAVE THOUGHTS OF HURTING YOURSELF OR SOMEONE ELSE? NO . ARE YOU ABUSED, NEGLECTED, OR IN AN UNSAFE ENVIRONMENT? NO . ENDOCRINOLOGY: ARE YOU DIABETIC? NO . OTHER: DO YOU NEED ANY PRESCRIPTIONS? NO . IF YES, PLEASE LIST: ____ . ANY NEW PROBLEMS WITH YOUR MEDICATIONS? NO . WHEN DID YOU LAST EAT? 07/31/182029 . WHEN DID YOU LAST DRINK? 08/01/180 . WHAT DID YOU LAST DRINK? WATER . NAME OF PERSON DRIVING YOU HOME? YELLOW CAB . DO YOU HAVE ANY OTHER QUESTIONS OR CONCERNS NO . VITAL SIGNS WT 222.2 LBS, HT 72 IN, BMI 30.13 INDEX, BP 135/83 MM HG, HR 72 /MIN, RR 18 /MIN, TEMP 98.6 F, OXYGEN SAT % 96%, NA INITIALS AW 0848, REVIEWED BY: BV. ASSESSMENTS SACROILIITIS, NOT ELSEWHERE CLASSIFIED - M46.1 (PRIMARY) PROCEDURES PN SI PRE PROCEDURE DIAGNOSIS SACROILIITIS, SACROILIAC JOINT DYSFUNCTION POST PROCEDURE DIAGNOSIS SACROILIITIS, SACROILIAC JOINT DYSFUNCTION PROCEDURE BILATERAL SACROILIAC JOINT BLOCK SURGEON DR. DILSHAD ESPARZA NON GARMENT SEWING MACHINE OPERATOR NONE ANESTHESIA LOCAL PRE PROCEDURE NOTE PATIENT WITH HISTORY OF CHRONIC LOW BACK PAIN. I EVALUATED THE PATIENT AND REVIEWED THE CHART. I WENT OVER THE RISKS, ALTERNATIVES, AND BENEFITS ASSOCIATED WITH THIS PROCEDURE. THE PATIENT WOULD LIKE TO PROCEED AND GAVE CONSENT TO PERFORM THE PROCEDURE. THE PATIENT DENIES UNEXPLAINABLE WEIGHT LOSS, FEVER, CHILLS, OR NEW CHANGES IN URINARY OR BOWEL CONTROL DESCRIPTION OF PROCEDURE THE PATIENT WAS BROUGHT TO THE PROCEDURE ROOM AND PLACED IN THE PRONE POSITION. THE LUMBOSACRAL AREA WAS CLEANED WITH CHLORAPREP SOLUTION AND DRAPED ASEPTICALLY. THE PROCEDURE WAS DONE UNDER STERILE CONDITIONS. I CHECKED LATERALITY AND THE LEVEL WHERE THE PROCEDURE WAS GOING TO BE PERFORMED WITH THE PATIENT AND THE SUPPORTING STAFF AT THE MOMENT OF THE TIME OUT IN THE PROCEDURE ROOM. UNDER FLUOROSCOPIC GUIDANCE, TARGET POINT WAS SELECTED AT THE LOWER BORDER OF THE RIGHT AND LEFT SACROILIAC JOINT. TARGET POINT WAS SELECTED AFTER MEDIAL ROTATION AND TILT OF THE MAGNIFIER OF THE C-ARM. LIDOCAINE WAS USED TO NUMB THE SKIN AND SUBCUTANEOUS TISSUE BELOW IT. A SPINAL NEEDLE, 22-GAUGE, WAS ADVANCED UNDER FLUOROSCOPIC GUIDANCE AND FOLLOWING PATIENT FEEDBACK UNTIL THE TARGET AREA WAS TOUCHED. THE POSITION OF THE NEEDLE WAS VERIFIED WITH AP AND LATERAL VIEWS. AFTER PROPER POSITION OF THE NEEDLE WAS ACHIEVED, ISOVUE M DYE 30%, 0.25 ML, WAS INJECTED SHOWING SPREAD OF THE DYE. THEN, A SOLUTION OF 20 MG OF KENALOG WAS INJECTED IN RIGHT AND LEFT JOINT WITH 3 ML OF BUPIVACAINE 0.125%. THERE WAS NO EVIDENCE OF BLOOD, PARESTHESIA OR CEREBROSPINAL FLUID DURING THE PROCEDURE. THE PATIENT WAS SENT TO THE RECOVERY ROOM. THE PATIENT WAS MOVING THE EXTREMITIES AND DOING WELL. THERE WAS NO COMPLICATION DURING THE PROCEDURE. FLUOROSCOPY TIME WAS 20 SECONDS POST PROCEDURE NOTE THE PATIENT WILL BE SEEN IN A FOLLOW UP IN THE NEXT FEW WEEKS. INSTRUCTIONS WERE GIVEN, QUESTIONS WERE ANSWERED, AND THE PATIENT EXPRESSED UNDERSTANDING AND AGREED WITH THE PLAN. I, DIDIER VERDUZCO, DOCUMENTED THE ABOVE INFORMATION ACTING A SCRIBE FOR DR. ESPARZA. I HAVE REVIEWED THE ABOVE DOCUMENT, WRITTEN BY DIDIER LAUREN AND I VERIFY THAT IT IS ACCURATE. DIAGNOSTIC IMAGING [facility] FLUORO GUIDANCE (PAIN)[id number] PROCEDURE CODES 6045F RADXPS IN END [id number] PXD [id number] INJECT SACROILIAC JOINT, MODIFIERS: 50 DISPOSITION & COMMUNICATION FOLLOW UP 3 WEEKS ELECTRONICALLY SIGNED BY DILSHAD ESPARZA MD, MD ON 08/15/2018 AT 02:51 PM EST DISCLAIMER : THIS IS A VISIT SUMMARY EXTRACTED FROM THE [employer] CHART. IT IS NOT A COPY OF THE [employer] PROGRESS NOTE. MTDD
== END ==
LOC: M PAIN 08:30
PROVIDERS: ATTEND Anesthesiology
DX: G89.29 Other chronic pain (principal); M46.1 Sacroiliitis, not elsewhere classified; M53.88 Other specified dorsopathies, sacral and sacrococcygeal region; J45.909 Unspecified asthma, uncomplicated; R56.9 Unspecified convulsions; F17.210 Nicotine dependence, cigarettes, uncomplicated; Z79.891 Long term (current) use of opiate analgesic; Z79.899 Other long term (current) drug therapy; Z88.0 Allergy status to penicillin
CPT/HCPCS: 27096; J3301; Q9967

== ENCOUNTER → 2018-10-10 | Outpatient (CLI) | payer OTHER ==
[~2018-10-10] MED LIST changes: -BUPIVACAINE HCL 0.25% 30 ML VIAL As Ordered ONE; -ISOVUE-M 300 61% 15ML VIAL (Q9967) As Ordered ONE; -LIDOCAINE 1% SDV INJ 30 ML VIAL As Ordered ONE; -TRIAMCINOLONE ACETONIDE SUSP 40 MG/ML VIAL (J3301) As Ordered ONE; -diazePAM 5 MG TAB As Ordered ONE; -oxyCODONE 5MG TAB As Ordered ONE
--- NOTE | 2018-10-25 01:12 | ECWPNPC ---
PATIENT NAME: PAULINA VUONG : 1980 GENDER: MALE VISIT DATE: 10/10/2018 DISCHARGE DATE: 10/10/18 1126 VISIT LOCKED DATE TIME: PHYSICIAN: BRIANA LOBO RESOURCE: BRIANA LOBO REASON FOR APPOINTMENT 1. POST SIJ- REPEAT MRI L SPINE DENIED HISTORY OF PRESENT ILLNESS HISTORY OF PRESENT ILLNESS: HERE FOR POST PROCEDURE F/U.HAD BILAT. SIJ ON08/01/18.REPORTS 100 % REDUCTION IN PAIN FOR 7-10 DAYS THEN PAIN ABRUPTLY RETURNED.REVIEWED MRI L/S SPINE SHOWING MULTI LEVEL DISC PROTRUSION. PAIN THE PATIENT DESCRIBES THE PAIN... FALL RISK SCREENING: SCREENING : NO FALLS IN THE PAST YEAR. CURRENT MEDICATIONS TAKING HYDROXYZINE HCL 50 MG TABLET ORALLY THREE TIMES DAILY TAKING SEROQUEL 100 MG TABLET 1 TABLET ORALLY ONCE A DAY TAKING MOBIC 15 MG TABLET 1 TABLET ORALLY ONCE A DAY TAKING ROBAXIN-750 750 MG TABLET 1 TABLET ORALLY Q8H TAKING BRIVIACT 50 MG TABLET 1 TABLET ORALLY TWICE A DAY NOT-TAKING VENTOLIN HFA 108 (90 BASE) MCG/ACT AEROSOL SOLUTION 2 PUFFS NEEDED INHALATION EVERY 4 HRS, NOTES: NONE NOT-TAKING KEPPRA 1000 MG TABLET 1 TAB ORALLY THREE TIMES DAILY NOT-TAKING GABAPENTIN 300 MG CAPSULE 1 CAPSULE ORALLY TID NOT-TAKING NAPROXEN 375 MG TABLET 1 TABLET WITH FOOD OR MILK NEEDED ORALLY EVERY 12 HRS MEDICATION LIST REVIEWED AND RECONCILED WITH THE PATIENT PAST MEDICAL HISTORY ASTHMA BACK PAIN SEIZURE DISORDER ALLERGIES PENICILLIN (FOR ALLERGIES USE ONLY): ANAPHYLAXIS - ALLERGY SURGICAL HISTORY NO SURGICAL HISTORY DOCUMENTED. FAMILY HISTORY FATHER: UNKNOWN MOTHER: UNKNOWN SIBLINGS: UNKNOWN DAUGHTER(S): ALIVE 1 SON(S) , 1 DAUGHTER(S) - HEALTHY. ADOPTED BY GRANDMOTHER, NO KNOWLEDGE OF FAMILY HISTORY. SOCIAL HISTORY GENERAL: TOBACCO USE ARE YOU A:CURRENT SMOKER ARE YOU INTERESTED IN QUITTING?NOT READY TO QUIT COUNSELED THE PATIENT ON SMOKING EFFECTS, EDUCATION [id number]/05/2018 HOW MANY CIGARETTES A DAY DO YOU SMOKE?6-10 HOW SOON AFTER YOU WAKE UP DO YOU SMOKE YOUR FIRST CIGARETTE?6-30 MIN HOW OFTEN DO YOU SMOKE CIGARETTES?EVERY DAY PATIENT COUNSELED ON THE DANGERS OF TOBACCO USE AND URGED TO QUIT:06/28/2018 LATEX QUESTIONNAIRE LATEX ALLERGY : HAVE YOU EVER DEVELOPED ANY TYPE OF REACTION AFTER HANDLING LATEX PRODUCTS SUCH RUBBER GLOVES, CONDOMS, DIAPHRAGMS, BALLOONS, SOCKS, OR UNDERWEAR?NO LATEX ALLERGY : HAVE YOU EVER DEVELOPED ANY TYPE OF REACTION DURING OR AFTER DENTAL APPOINTMENT, VAGINAL/RECTAL EXAMINATION, SURGICAL PROCEDURE, OR ANY OTHER EXPOSURE?NO LATEX RISK : HAVE YOU EVER HAD ANY DIFFICULTY BREATHING OR HIVES AFTER EATING OR HANDLING ANY FRUITS, OR VEGETABLES; SUCH KIWI, BANANAS, STONE FRUITS, OR CHESTNUTSNO LATEX RISK : DO YOU HAVE A PREVIOUS PERSONAL HISTORY OF MORE THAN NINE SURGERIES, SPINA BIFIDA, OR REPEATED CATHERTIZATIONS? NO LATEX RISK : ARE YOU FREQUENTLY EXPOSED TO LATEX PRODUCTS IN YOUR OCCUPATION?NO DATE ASKED : 10/10/2018 BMI CARE GOAL FOLLOW-UP ABOVE NORMAL BMI FOLLOW-UPLIFESTYLE EDUCATION REGARDING DIET ALCOHOL SCREENING DID YOU HAVE A DRINK CONTAINING ALCOHOL IN THE PAST YEAR?NO POINTS0 INTERPRETATIONNEGATIVE RECREATIONAL DRUG USE DRUG USE?NO CAFFEINE CAFFEINE USE?YES SEXUAL HX HAD SEX IN THE LAST 12 MONTHS (VAGINAL, ORAL, OR ANAL)?YES WITHWOMEN ONLY HIV / HEP-C SCREENING HIV TEST OFFERED TO PATIENT:YES DATE OFFERED:01/04/2017 TEST ACCEPTED:YES UATSDIN [id number] MANDAEISM NO AMISH BELIEFS THAT WOULD IMPACT HEALTH CARE. LANGUAGE LANGUAGES SPOKEN:[place] EDUCATION LEVEL OF EDUCATION:HIGH SCHOOL LEARNING BARRIERS / SPECIAL NEEDS CHANGE FROM LAST VISIT?YES BARRIERS TO LEARNING?NO HEARING IMPAIRED?NO VISION IMPAIRED?NO COGNITIVELY IMPAIRED?NO READINESS TO LEARN?YES LEARNING PREFERENCES?NO LEARNING CAPABILITIES PRESENT?YES EMOTIONAL BARRIERS?NO SPECIAL DEVICES?NO PLUMBING MECHANIC NEEDED?NO OCCUPATION: UNEMPLOYED. DIET: REGULAR. EXERCISE: NO REGULAR EXERCISE. MARITAL STATUS: SINGLE. OTHERS AT HOME: NONE. PAIN CLINIC PFS, CLERGY, PUBLIC HEALTH REFERRALS HAS THE PATIENT BEEN EDUCATED REGARDING HIS/HER PLAN OF CARE?YES REVIEWED TPI PROCEDURE WITH PATIENT. 4-12-18 CM HAS THE PATIENT BEEN EDUCATED REGARDING PAIN, THE RISK FOR PAIN, THE IMPORTANCE OF EFFECTIVE PAIN MANAGEMENT, AND THE PAIN ASSESSMENT PROCESS?YES ADVANCE DIRECTIVE ADVANCE DIRECTIVE DISCUSSED WITH PATIENT:YES DECLINED HCP INFORMATION AT THIS TIME. DECLINED ASSISTNACE WITH FILLING OUT FORM. 10/10/18 BV REVIEWED 10/12/17 1400 LASREVIEWED WITH PATIENT 06/28/18 1051 JSREVIEWED WITH PT. 08/01/18 0901 BVREVEIWED WITH PT 10/10/18 1050 BV. HOSPITALIZATION/MAJOR DIAGNOSTIC PROCEDURE NO HOSPITALIZATION HISTORY. REVIEW OF SYSTEMS REVIEWED BY: PROVIDER: BRIANA CHAN . CONSTITUTIONAL: ANY CHANGE IN YOUR MEDICAL CONDITION? NO . CHILLS NO . FEVER NO . INFECTION: DO YOU HAVE NEW INFECTIONS? NO . DO YOU HAVE HISTORY OF MRSA? NO . MUSCULOSKELETAL: ANY NEW PATTERNS OF PAIN OR NUMBNESS? NO . GASTROENTEROLOGY: ANY NEW CHANGE IN BOWEL CONTROL? NO . GENITOURINARY: ANY NEW CHANGE IN BLADDER CONTROL? NO . IS THERE A CHANCE YOU COULD BE ? NO . HEMATOLOGY/LYMPH: DO YOU TAKE ANY BLOOD THINNERS? (FOR EXAMPLE- COUMADIN, PLAVIX, AGGRENOX, PLATEL, PRADAXA, OR XARELTO) NO . WHEN WAS YOUR LAST DOSE? DATE: TIME: . NEUROLOGY: HAVE YOU FALLEN IN THE PAST 12 MONTHS? NO . ANY NEW EXTREMITY NUMBNESS OR WEAKNESS? NO . CARDIOLOGY: DO YOU HAVE A PACEMAKER OR DEFIBRILLATOR? NO . RESPIRATORY: HAVE YOU BEEN SICK IN THE PAST WEEK? NO . FEVER NO . FLU LIKE SYMPTOMS? YES, PT REPORTS HAVING THE FLU OVER A WEEK AGO. STATES HE WAS TREATED AT [facility] FOR THIS AND HIS SYMPTOMS HAVE SINCE RESOLVED. . COUGH NO . INTEGUMENTARY: DO YOU HAVE ANY RASHES OR OPEN SORES? NO . ALLERGIC/IMMUNO: ARE YOU ALLERGIC TO IV DYE? NO . ANY NEW ALLERGIES? NO . PSYCHIATRIC: DO YOU HAVE THOUGHTS OF HURTING YOURSELF OR SOMEONE ELSE? NO . ARE YOU ABUSED, NEGLECTED, OR IN AN UNSAFE ENVIRONMENT? NO . ENDOCRINOLOGY: ARE YOU DIABETIC? NO . OTHER: DO YOU NEED ANY PRESCRIPTIONS? NO . IF YES, PLEASE LIST: ____ . ANY NEW PROBLEMS WITH YOUR MEDICATIONS? NO . WHEN DID YOU LAST EAT? ____ . WHEN DID YOU LAST DRINK? ____ . WHAT DID YOU LAST DRINK? ____ . NAME OF PERSON DRIVING YOU HOME? ____ . DO YOU HAVE ANY OTHER QUESTIONS OR CONCERNS NO . VITAL SIGNS WT 215.6 LBS, HT 72 IN, BMI 29.24 INDEX, BP 130/78 MM HG, HR 64 /MIN, RR 18 /MIN, TEMP 96.7 F, OXYGEN SAT % 96%, NA INITIALS SC 10:50, REVIEWED BY: BV. EXAMINATION GENERAL EXAMINATION: GENERAL APPEARANCE: ALERT,NO DISTRESS . PSYCH AFFECT NORMAL . LUNGS: LUNG SOUNDS ARE CLEAR . HEART: HEART RATE REGULAR . MUSCULOSKELETAL: MST 5/5 BILAT. LOWER EXTREMITIES . LUMBAR SACRAL SPINE TENDERNESS BILAT. SIJ . DIAGNOSTIC TESTS REVIEWEDMRI L/S SPINE-04/17/18. ASSESSMENTS SACROILIITIS - M46.1 (PRIMARY) PROTRUSION OF LUMBAR INTERVERTEBRAL DISC - M51.26 LUMBOSACRAL RADICULOPATHY - M54.17 TREATMENT SACROILIITIS NOTES: BILAT. SIJ. [facility] RE[facility]ON:LUMBAR DISC PROTRUSION W RADICULOPATHY PREVENTIVE MEDICINE PAIN CLINIC TEACHING: PROCEDURE TEACHING PT GIVEN WRITTEN AND VERBAL PRE-PROCEDURE INSTRUCTIONS. PT VERBALIZES UNDERSTANDING OF ALL INSTRUCTIONS. DISHA LINDER 10/10/2018 11:26:20 AM > . PROCEDURE CODES FA211 ESTABILISHED PATIENT [facility] FACILITY CHARGE DISPOSITION & COMMUNICATION FOLLOW UP POST (REASON: BILAT. SIJ) ELECTRONICALLY SIGNED BY DUSTIN GRACIA ON 10/24/2018 AT 02:39 PM EDT DISCLAIMER : THIS IS A VISIT SUMMARY EXTRACTED FROM THE [employer] CHART. IT IS NOT A COPY OF THE [employer] PROGRESS NOTE. [place]
== END ==
LOC: M PAIN 10:15
PROVIDERS: ATTEND Nurse Practitioner Family
DX: M46.1 Sacroiliitis, not elsewhere classified (principal); M51.26 Other intervertebral disc displacement, lumbar region; M54.17 Radiculopathy, lumbosacral region; J45.909 Unspecified asthma, uncomplicated; R56.9 Unspecified convulsions; F17.210 Nicotine dependence, cigarettes, uncomplicated; Z88.0 Allergy status to penicillin; Z79.1 Long term (current) use of non-steroidal anti-inflammatories (NSAID); Z79.899 Other long term (current) drug therapy

== ENCOUNTER → 2018-12-06 | Outpatient (CLI) | payer OTHER ==
[~2018-12-06] MED LIST changes: -NAPR-50 PO; +NAPR-837 PO
--- NOTE | 2018-12-26 00:52 | ECWPNPC ---
PATIENT NAME: PAULINA VUONG : 1980 GENDER: MALE VISIT DATE: 12/06/2018 DISCHARGE DATE: 12/06/18 1032 VISIT LOCKED DATE TIME: PHYSICIAN: BRIANA LOBO RESOURCE: BRIANA LOBO REASON FOR APPOINTMENT 1. POST SIJ HISTORY OF PRESENT ILLNESS HISTORY OF PRESENT ILLNESS: HERE FOR F/U OF CHRONIC LOW BACK PAIN.HAD RECENT SURGICAL EVALUATION AND SURGERY WAS NOT RECOMMENDED.RECENT SEIZURE AND HAD AN INCREASE IN ANTISEIZURE MEDICINE BY [facility]UROLOGIST[facility]HISTORY OF SEIZURE DISORDER SINCE AGE 13.DISCUSSED NEED FOR CLEARANCE FROM NEUROLOGY TO PROCEED WITH LESI.PAIN IS LOCATED IN LOW BACK WITH RADIATION INTO LEFT LEG.RATING PAIN VAS 9/10. PAIN THE PATIENT DESCRIBES THE PAIN... FALL RISK SCREENING: SCREENING :NO FALLS REPORTED IN THE LAST YEAR CURRENT MEDICATIONS TAKING HYDROXYZINE HCL 50 MG TABLET ORALLY THREE TIMES DAILY TAKING SEROQUEL 100 MG TABLET 1 TABLET ORALLY ONCE A DAY TAKING MOBIC 15 MG TABLET 1 TABLET ORALLY ONCE A DAY TAKING ROBAXIN-750 750 MG TABLET 1 TABLET ORALLY Q8H TAKING BRIVIACT 50 MG TABLET 1 TABLET ORALLY TWICE A DAY NOT-TAKING VENTOLIN HFA 108 (90 BASE) MCG/ACT AEROSOL SOLUTION 2 PUFFS NEEDED INHALATION EVERY 4 HRS, NOTES: NONE NOT-TAKING KEPPRA 1000 MG TABLET 1 TAB ORALLY THREE TIMES DAILY NOT-TAKING GABAPENTIN 300 MG CAPSULE 1 CAPSULE ORALLY TID NOT-TAKING NAPROXEN 375 MG TABLET 1 TABLET WITH FOOD OR MILK NEEDED ORALLY EVERY 12 HRS MEDICATION LIST REVIEWED AND RECONCILED WITH THE PATIENT PAST MEDICAL HISTORY ASTHMA BACK PAIN SEIZURE DISORDER ALLERGIES PENICILLIN (FOR ALLERGIES USE ONLY): ANAPHYLAXIS - ALLERGY SURGICAL HISTORY DENIES PAST SURGICAL HISTORY FAMILY HISTORY FATHER: UNKNOWN MOTHER: UNKNOWN SIBLINGS: UNKNOWN DAUGHTER(S): ALIVE 1 SON(S) , 1 DAUGHTER(S) - HEALTHY. ADOPTED BY GRANDMOTHER, NO KNOWLEDGE OF FAMILY HISTORY. SOCIAL HISTORY GENERAL: TOBACCO USE ARE YOU A:CURRENT SMOKER ARE YOU INTERESTED IN QUITTING?NOT READY TO QUIT COUNSELED THE PATIENT ON SMOKING EFFECTS, EDUCATION [id number] HOW MANY CIGARETTES A DAY DO YOU SMOKE?6-10 HOW SOON AFTER YOU WAKE UP DO YOU SMOKE YOUR FIRST CIGARETTE?6-30 MIN HOW OFTEN DO YOU SMOKE CIGARETTES?EVERY DAY PATIENT COUNSELED ON THE DANGERS OF TOBACCO USE AND URGED TO QUIT:06/28/2018 HIV / HEP-C SCREENING HIV TEST OFFERED TO PATIENT:YES DATE OFFERED:01/04/2017 TEST ACCEPTED:YES OTHERS AT HOME: NONE. EDUCATION LEVEL OF EDUCATION:HIGH SCHOOL DIET: REGULAR. LANGUAGE LANGUAGES SPOKEN:ICELANDIC BMI CARE GOAL FOLLOW-UP ABOVE NORMAL BMI FOLLOW-UPLIFESTYLE EDUCATION REGARDING DIET RECREATIONAL DRUG USE DRUG USE?NO EXERCISE: NO REGULAR EXERCISE. LEARNING BARRIERS / SPECIAL NEEDS CHANGE FROM LAST VISIT?YES BARRIERS TO LEARNING?NO HEARING IMPAIRED?NO VISION IMPAIRED?NO COGNITIVELY IMPAIRED?NO READINESS TO LEARN?YES LEARNING PREFERENCES?NO LEARNING CAPABILITIES PRESENT?YES EMOTIONAL BARRIERS?NO SPECIAL DEVICES?NO GRAIN COMBINER NEEDED?NO PAIN CLINIC PFS, CLERGY, PUBLIC HEALTH REFERRALS HAS THE PATIENT BEEN EDUCATED REGARDING HIS/HER PLAN OF CARE?YES REVIEWED TPI PROCEDURE WITH PATIENT. 4-12-18 CM HAS THE PATIENT BEEN EDUCATED REGARDING PAIN, THE RISK FOR PAIN, THE IMPORTANCE OF EFFECTIVE PAIN MANAGEMENT, AND THE PAIN ASSESSMENT PROCESS?YES LATEX QUESTIONNAIRE LATEX ALLERGY : HAVE YOU EVER DEVELOPED ANY TYPE OF REACTION AFTER HANDLING LATEX PRODUCTS SUCH RUBBER GLOVES, CONDOMS, DIAPHRAGMS, BALLOONS, SOCKS, OR UNDERWEAR?NO LATEX ALLERGY : HAVE YOU EVER DEVELOPED ANY TYPE OF REACTION DURING OR AFTER DENTAL APPOINTMENT, VAGINAL/RECTAL EXAMINATION, SURGICAL PROCEDURE, OR ANY OTHER EXPOSURE?NO LATEX RISK : HAVE YOU EVER HAD ANY DIFFICULTY BREATHING OR HIVES AFTER EATING OR HANDLING ANY FRUITS, OR VEGETABLES; SUCH KIWI, BANANAS, STONE FRUITS, OR CHESTNUTSNO LATEX RISK : DO YOU HAVE A PREVIOUS PERSONAL HISTORY OF MORE THAN NINE SURGERIES, SPINA BIFIDA, OR REPEATED CATHERTIZATIONS? NO LATEX RISK : ARE YOU FREQUENTLY EXPOSED TO LATEX PRODUCTS IN YOUR OCCUPATION?NO DATE ASKED : 10/10/2018 CAFFEINE CAFFEINE USE?YES ADVANCE DIRECTIVE ADVANCE DIRECTIVE DISCUSSED WITH PATIENT:YES DECLINED HCP INFORMATION AT THIS TIME. DECLINED ASSISTNACE WITH FILLING OUT FORM. EPISCOPAL [id number] YARSANI NO HOLINESS BELIEFS THAT WOULD IMPACT HEALTH CARE. MARITAL STATUS: SINGLE. ALCOHOL SCREENING DID YOU HAVE A DRINK CONTAINING ALCOHOL IN THE PAST YEAR?NO POINTS0 INTERPRETATIONNEGATIVE OCCUPATION: UNEMPLOYED. SEXUAL HX HAD SEX IN THE LAST 12 MONTHS (VAGINAL, ORAL, OR ANAL)?YES WITHWOMEN ONLY REVIEWED 10/12/17 1400 LASREVIEWED WITH PATIENT 06/28/18 1051 JSREVIEWED WITH PT. 08/01/18 0901 BVREVEIWED WITH PT 10/10/18 1050 BV. HOSPITALIZATION/MAJOR DIAGNOSTIC PROCEDURE PNEUMONIA REVIEW OF SYSTEMS REVIEWED BY: PROVIDER: BRIANA CHAN . CONSTITUTIONAL: ANY CHANGE IN YOUR MEDICAL CONDITION? NO . CHILLS NO . FEVER NO . INFECTION: DO YOU HAVE NEW INFECTIONS? NO . DO YOU HAVE HISTORY OF MRSA? NO . MUSCULOSKELETAL: ANY NEW PATTERNS OF PAIN OR NUMBNESS? NO . GASTROENTEROLOGY: ANY NEW CHANGE IN BOWEL CONTROL? NO . GENITOURINARY: ANY NEW CHANGE IN BLADDER CONTROL? NO . IS THERE A CHANCE YOU COULD BE ? NO . HEMATOLOGY/LYMPH: DO YOU TAKE ANY BLOOD THINNERS? (FOR EXAMPLE- COUMADIN, PLAVIX, AGGRENOX, PLATEL, PRADAXA, OR XARELTO) NO . WHEN WAS YOUR LAST DOSE? DATE: TIME: . NEUROLOGY: HAVE YOU FALLEN IN THE PAST 12 MONTHS? NO . ANY NEW EXTREMITY NUMBNESS OR WEAKNESS? NO . CARDIOLOGY: DO YOU HAVE A PACEMAKER OR DEFIBRILLATOR? NO . RESPIRATORY: HAVE YOU BEEN SICK IN THE PAST WEEK? NO . FEVER NO . FLU LIKE SYMPTOMS? NO . COUGH NO . INTEGUMENTARY: DO YOU HAVE ANY RASHES OR OPEN SORES? NO . ALLERGIC/IMMUNO: ARE YOU ALLERGIC TO IV DYE? NO . ANY NEW ALLERGIES? NO . PSYCHIATRIC: DO YOU HAVE THOUGHTS OF HURTING YOURSELF OR SOMEONE ELSE? NO . ARE YOU ABUSED, NEGLECTED, OR IN AN UNSAFE ENVIRONMENT? NO . ENDOCRINOLOGY: ARE YOU DIABETIC? NO . OTHER: DO YOU NEED ANY PRESCRIPTIONS? YES, MOBIC, ROBAXIN . IF YES, PLEASE LIST: ____ . ANY NEW PROBLEMS WITH YOUR MEDICATIONS? NO . WHEN DID YOU LAST EAT? ____ . WHEN DID YOU LAST DRINK? ____ . WHAT DID YOU LAST DRINK? ____ . NAME OF PERSON DRIVING YOU HOME? ____ . DO YOU HAVE ANY OTHER QUESTIONS OR CONCERNS NO . VITAL SIGNS WT 208.8 LBS, HT 72 IN, BMI 28.32 INDEX, BP 133/80 MM HG, HR 71 /MIN, RR 18 /MIN, TEMP 97.7 F, OXYGEN SAT % 96, NA INITIALS MP 0949. EXAMINATION GENERAL EXAMINATION: GENERAL APPEARANCE:AWAKE,ALERT ,PLEAASANT . PSYCHAFFECT NORMAL . LUNGS:LUNG WOODY ARE CLEAR TO AUSCULTATION BILATERALLY. GOOD MOVEMENT OF AIR . HEART:S1, S2 IN A REGULAR RATE AND RHYTHM. NO SIGNIFICANT MURMURS, RUBS OR GALLOPS NOTED . LUMBAR SACRAL SPINESPECIFIC POINT TENDERNESS OVER BILAT. SIJ.MILD WEAKNESS NOTED OVER LEFT LEG W MST. ASSESSMENTS PROTRUSION OF LUMBAR INTERVERTEBRAL DISC - M51.26 LUMBOSACRAL RADICULOPATHY - M54.17 TREATMENT OTHERS NOTES: WHAT IS LUMBAR EPIDURAL INJECTION? MATERIAL WAS PRINTED, REVIEWED AND GIVEN TO PT. SORAIDA L4/5 NEED MEDICAL CLEARANE FROM NEUROLOGY. PROCEDURE CODES FA211 ESTABILISHED PATIENT [facility] CHARGE DISPOSITION & COMMUNICATION FOLLOW UP POST (REASON: L4/5 LESI) ELECTRONICALLY SIGNED BY DUSTIN GRACIA ON 12/25/2018 AT 08:47 AM EDT DISCLAIMER : THIS IS A VISIT SUMMARY EXTRACTED FROM THE [employer] CHART. IT IS NOT A COPY OF THE [employer] PROGRESS NOTE. [place]
== END ==
LOC: M PAIN 10:15
PROVIDERS: ATTEND Nurse Practitioner Family
DX: M51.26 Other intervertebral disc displacement, lumbar region (principal); M54.17 Radiculopathy, lumbosacral region; G89.29 Other chronic pain; R56.9 Unspecified convulsions; J45.909 Unspecified asthma, uncomplicated; F17.210 Nicotine dependence, cigarettes, uncomplicated; Z79.899 Other long term (current) drug therapy; Z88.0 Allergy status to penicillin

== ENCOUNTER 2019-01-01 19:19 | Emergency (ER) | payer OTHER ==
[~2019-01-01] VITALS: Ht 180.3 cm; Wt 73.6 kg
[2019-01-01 19:19] VITALS: BP 140/85
[2019-01-01] MEDS ORDERED: BRIV50TA PO (19:32)
== END 2019-01-01 23:43 | disposition left against medical advice (07) ==
LOC: M ED 19:19
DX: Z53.29 Procedure and treatment not carried out because of patient's decision for other reasons (principal)

== ENCOUNTER → 2019-05-02 | Outpatient (CLI) | payer OTHER ==
[~2019-05-02] MED LIST changes: +BRIV50TA PO
== END ==
LOC: M PAIN 11:15
PROVIDERS: ATTEND Nurse Practitioner Family
DX: M51.16 Intervertebral disc disorders with radiculopathy, lumbar region (principal); Z53.21 Procedure and treatment not carried out due to patient leaving prior to being seen by health care provider

== ENCOUNTER 2019-05-11 20:39 | Emergency (ER) | payer OTHER ==
[~2019-05-11] VITALS: Ht 180.3 cm; Wt 70.0 kg
[2019-05-11] MEDS ORDERED: KETOROLAC 30 MG/ML VIAL (J1885) IV ONE (21:45)
[2019-05-11] MEDS ORDERED: METOCLOPRAMIDE INJ 10MG/2ML VIAL (J2765) IV ONE (21:45)
[2019-05-11] MEDS ORDERED: NS 1,000 ML IV ONE (21:45)
[2019-05-11 21:46] LABS: HEMATOCRIT 45.7 % (42.0-52.0); MEAN CORPUSCULAR HEMOGLOBIN 26.3 pg (27.0-33.0); MEAN CORPUSCULAR HGB CONC 32.8 g/dl (32.0-36.5); MEAN CORPUSCULAR VOLUME 80.2 fl (80.0-96.0); PLATELET COUNT, AUTOMATED 306 10^3/uL (150-450)
[2019-05-11 22:11] LABS: BASOPHILS 2 % (0-1); EOSINOPHILS 4 % (0-3); LYMPHOCYTES 38 % (16-44); MONOCYTES 2 % (0-5); NEUTROPHILS 52 % (28-66); PLATELET ESTIMATE NORMAL (NORMAL)
[2019-05-11 22:16] LABS: ALT/SGPT 22 U/L (12-78); BILIRUBIN,DIRECT < 0.1 MG/DL (0.0-0.2); BILIRUBIN,TOTAL 0.5 MG/DL (0.2-1.0); BLOOD UREA NITROGEN 12 MG/DL (7-18); CARBON DIOXIDE LEVEL 30 MEQ/L (21-32); CHLORIDE LEVEL 105 MEQ/L (98-107); CREATININE FOR GFR 1.12 MG/DL (0.70-1.30); GLOMERULAR FILTRATION RATE > 60.0 (>60); GLUCOSE, FASTING 94 MG/DL (70-100); LIPASE 88 U/L (73-393); POTASSIUM SERUM 4.3 MEQ/L (3.5-5.1); SODIUM LEVEL 138 MEQ/L (136-145); TOTAL PROTEIN 7.5 GM/DL (6.4-8.2)
[2019-05-11] MEDS ORDERED: ISOVUE-370 76% 100ML VIAL (Q9967) As Ordered ONE (22:40)
--- NOTE | 2019-05-11 23:30 | REPVR ---
PROCEDURE INFORMATION: Exam: CT Abdomen And Pelvis With Contrast Exam date and time: 05/11/2019 10:49 PM Clinical history: 39 years old, male; Abdominal pain; Localized; Right; Additional info: Right side abd pain, vomiting with all po x days TECHNIQUE: Imaging protocol: Computed tomography of the abdomen and pelvis with intravenous contrast. Radiation optimization: All CT scans at this facility use at least one of these dose optimization techniques: automated exposure control; mA and/or kV adjustment per patient size (includes targeted exams where dose is matched to clinical indication); or iterative reconstruction. Contrast material: ISOVUE 370; Contrast volume: 100 ml; Contrast route: IV; COMPARISON: No relevant prior studies available. FINDINGS: Lungs: No suspicious mass or airspace process in the visualized lung bases. Liver: Liver is unremarkable aside from benign transient hepatic perfusion anomaly in the anterior right lobe, image 33-35. No clinical significance. Gallbladder and bile ducts: Gallbladder is present and shows no evidence of calcified gallstone. Gallbladder wall appears mildly indistinct and possibly mildly thickened Pancreas: Pancreas appears normal. No focal mass or peripancreatic inflammation. Spleen: Spleen appears homogeneous without focal mass. Adrenals: Adrenal glands are normal in appearance. Kidneys and ureters: Kidneys appear normal, with no stone, solid mass or hydronephrosis. Stomach and bowel: No evidence of small bowel obstruction. No evidence of acute diverticulitis. Appendix: Normal caliber appendix is identified, with no adjacent inflammation. Intraperitoneal space: No pneumoperitoneum. No abnormal pelvic mass. Vasculature: Main portal and splenic veins enhance normally. No aortic aneurysm. Lymph nodes: No enlarged lymph nodes. Bladder: Urinary bladder appears normal. Bones/joints: Bony structures show no acute fracture or destructive process. IMPRESSION: 1. Indistinct margins of the gallbladder with perhaps mild wall thickening or pericholecystic fluid/edema. Early cholecystitis cannot be excluded. No biliary obstruction. 2. Consider sonography if clinically warranted. 3. No other concerning abnormality Electronically signed by: Derek Lopez On 05/11/2019 23:30:35 PM
[2019-05-12] MEDS ORDERED: REGL10TA6 PO (00:22)
[2019-05-12 00:27] VITALS: BP 121/81
[2019-05-12] MEDS ORDERED: METOCLOPRAMIDE 10 MG TAB PO ONE (00:30)
== END 2019-05-12 00:41 | disposition home or self-care (01) ==
LOC: M ED 20:39
DX: R10.84 Generalized abdominal pain (principal); K82.9 Disease of gallbladder, unspecified; R11.2 Nausea with vomiting, unspecified; K21.9 Gastro-esophageal reflux disease without esophagitis; R56.9 Unspecified convulsions; J45.909 Unspecified asthma, uncomplicated; F17.200 Nicotine dependence, unspecified, uncomplicated; Z79.899 Other long term (current) drug therapy; Z88.0 Allergy status to penicillin
CPT/HCPCS: 74177; 80048; 80076; 81001; 83690; 85025; 96361; 96374; 96375; 99284; J1885; J2765; Q9967

== ENCOUNTER 2019-06-06 07:47 | Day surgery (SDC) | payer OTHER ==
[~2019-06-06] VITALS: Ht 180.3 cm; Wt 91.5 kg
[~2019-06-06 07:47] MED LIST changes: +NS 1,000 ML IV SCH; +QUET1TAB8 PO; +REGL10TA6 PO
[2019-06-06] MEDS ORDERED: PROPOFOL 200 MG/20 ML VIAL As Ordered ONE (09:28)
[2019-06-06] MEDS ORDERED: LIDOCAINE 2% INJ 100 MG/5 ML SDV (FOR ANES.) As Ordered ONE (09:29)
[2019-06-06] MEDS ORDERED: fentaNYL 100 MCG/2 ML INJECTION (J3010) As Ordered ONE (09:53)
--- NOTE | 2019-06-06 10:42 | ROOR ---
Patient Name: Jayro Palacios Procedure Date: 06/06/2019 10:14 AM Date of : 1980 Age: 39 Room: [facility] Gender: Male Note Status: Finalized Procedure: Upper GI endoscopy Indications: Dysphagia Providers: DO Aleta Lr MD: Barbara MURRY MD Requesting Provider: Medicines: Propofol per Anesthesia Complications: No immediate complications. Procedure: Pre-Anesthesia Assessment: - Prior to the procedure, a History and Physical was performed, and patient medications and allergies were reviewed. The patient is competent. The risks and benefits of the procedure and the sedation options and risks were discussed with the patient. All questions were answered and informed consent was obtained. Patient identification and proposed procedure were verified by the physician, the nurse, the anesthesiologist and the windows server support technician in the endoscopy suite. Mental Status Examination: alert and oriented. Airway Examination: normal oropharyngeal airway and neck mobility. Respiratory Examination: clear to auscultation. CV Examination: normal. Prophylactic Antibiotics: The patient does not require prophylactic antibiotics. Prior Anticoagulants: The patient has taken no previous anticoagulant or antiplatelet agents. ASA Grade Assessment: III - A patient with severe systemic disease. After reviewing the risks and benefits, the patient was deemed in satisfactory condition to undergo the procedure. The anesthesia plan was to use monitored anesthesia care (MAC). Immediately prior to administration of medications, the patient was re-assessed for adequacy to receive sedatives. The heart rate, respiratory rate, oxygen saturations, blood pressure, adequacy of pulmonary ventilation, and response to care were monitored throughout the procedure. The physical status of the patient was re-assessed after the procedure. The Endoscope was introduced through the mouth, and advanced to the third part of duodenum. The upper GI endoscopy was accomplished without difficulty. The patient tolerated the procedure well. Findings: Mild inflammation was found in the prepyloric region of the stomach. Biopsies were taken with a cold forceps for Helicobacter pylori testing. One non-bleeding cratered gastric ulcer with no stigmata of bleeding was found in the prepyloric region of the stomach. The lesion was 4 mm in largest dimension. Impression: - Gastritis. Biopsied. - Non-bleeding gastric ulcer with no stigmata of bleeding. Recommendation: - Patient has a contact number available for emergencies. The signs and symptoms of potential delayed complications were discussed with the patient. Return to normal activities tomorrow. Written discharge instructions were provided to the patient. - Repeat upper endoscopy in 6 months for surveillance based on pathology results. - Return to my office as previously scheduled. - Await pathology results. Ezequiel Hong DO 06/06/2019 10:42:04 AM Electronically signed by Ezequiel Hong DO Number of Addenda: 0 Note Initiated On: 06/06/2019 10:14 AM Estimated Blood Loss: Estimated blood loss was minimal.
--- NOTE | 2019-06-06 10:44 | ROOR ---
Patient Name: Jayro Palacios Procedure Date: 06/06/2019 10:15 AM Date of : 1980 Age: 39 Room: [facility] Gender: Male Note Status: Finalized Procedure: Colonoscopy Indications: Clinically significant diarrhea of unexplained origin Providers: DO Aleta Lr MD: Barbara MURRY MD Requesting Provider: Medicines: Propofol per Anesthesia Complications: No immediate complications. Procedure: Pre-Anesthesia Assessment: - Prior to the procedure, a History and Physical was performed, and patient medications and allergies were reviewed. The patient is competent. The risks and benefits of the procedure and the sedation options and risks were discussed with the patient. All questions were answered and informed consent was obtained. Patient identification and proposed procedure were verified by the physician, the nurse, the anesthesiologist and the wind turbine technician in the endoscopy suite. Mental Status Examination: alert and oriented. Airway Examination: normal oropharyngeal airway and neck mobility. Respiratory Examination: clear to auscultation. CV Examination: normal. Prophylactic Antibiotics: The patient does not require prophylactic antibiotics. Prior Anticoagulants: The patient has taken no previous anticoagulant or antiplatelet agents. ASA Grade Assessment: III - A patient with severe systemic disease. After reviewing the risks and benefits, the patient was deemed in satisfactory condition to undergo the procedure. The anesthesia plan was to use monitored anesthesia care (MAC). Immediately prior to administration of medications, the patient was re-assessed for adequacy to receive sedatives. The heart rate, respiratory rate, oxygen saturations, blood pressure, adequacy of pulmonary ventilation, and response to care were monitored throughout the procedure. The physical status of the patient was re-assessed after the procedure. The Colonoscope was introduced through the anus and advanced to the cecum, identified by appendiceal orifice and ileocecal valve. The colonoscopy was performed without difficulty. The patient tolerated the procedure well. The quality of the bowel preparation was inadequate. Findings: Extensive amounts of stool was found in the entire colon, interfering with visualization. Estimated blood loss: none. The exam was otherwise without abnormality on direct and retroflexion views. Impression: - Preparation of the colon was inadequate. - Stool in the entire examined colon. - The examination was otherwise normal on direct and retroflexion views. - No specimens collected. Recommendation: - Patient has a contact number available for emergencies. The signs and symptoms of potential delayed complications were discussed with the patient. Return to normal activities tomorrow. Written discharge instructions were provided to the patient. - Repeat colonoscopy in 6 months because the bowel preparation was suboptimal. - Return to my office as previously scheduled. Ezequiel Hong DO 06/06/2019 10:44:37 AM Electronically signed by Ezequiel Hong DO Number of Addenda: 0 Note Initiated On: 06/06/2019 10:15 AM Estimated Blood Loss: Estimated blood loss: none.
[2019-06-06 11:10] VITALS: BP 114/80
== END 2019-06-06 11:16 | disposition home or self-care (01) ==
LOC: M OPP 07:47
PROVIDERS: ATTEND Surgery
DX: R19.7 Diarrhea, unspecified (principal); K29.70 Gastritis, unspecified, without bleeding; K25.9 Gastric ulcer, unspecified as acute or chronic, without hemorrhage or perforation; R13.10 Dysphagia, unspecified; Z79.899 Other long term (current) drug therapy; Z88.0 Allergy status to penicillin
CPT/HCPCS: 43239; 45378; 88305; J3010

== ENCOUNTER → 2019-06-12 | Outpatient (CLI) | payer OTHER ==
[~2019-06-12] MED LIST changes: -NS 1,000 ML IV SCH
--- NOTE | 2019-06-28 02:16 | ECWPNPC ---
PATIENT NAME: PAULINA VUONG : 1980 GENDER: MALE VISIT DATE: 06/12/2019 DISCHARGE DATE: 06/12/19 1148 VISIT LOCKED DATE TIME: PHYSICIAN: BRIANA LOBO RESOURCE: BRIANA LOBO REASON FOR APPOINTMENT 1. POST PROC HISTORY OF PRESENT ILLNESS HISTORY OF PRESENT ILLNESS: HERE FOR POST PROCEDURE F/U.HAD LESI ON .REPORTING SIGNIFICANT IMPROVMENT IN PAIN X6 WEEKS THEN PAIN RETURNED TO BASELINE.PAIN IS ACROSS LOW BACK WITH RADIATION INTO BOTH LEGS.RATING PAIN VAS 9/10. PAIN THE PATIENT DESCRIBES THE PAIN... FALL RISK SCREENING: SCREENING :NO FALLS REPORTED IN THE LAST YEAR CURRENT MEDICATIONS TAKING HYDROXYZINE HCL 25 MG TABLET 3 TABS ORALLY THREE TIMES DAILY TAKING SEROQUEL 100 MG TABLET 1 TABLET ORALLY ONCE A DAY TAKING BRIVIACT 50 MG TABLET 1 TABLET ORALLY TWICE A DAY TAKING MOBIC 15 MG TABLET 1 TABLET ORALLY ONCE A DAY TAKING ROBAXIN-750 750 MG TABLET 1 TABLET ORALLY Q8H TAKING VENTOLIN HFA 108 (90 BASE) MCG/ACT AEROSOL SOLUTION 2 PUFFS NEEDED INHALATION EVERY 4 HRS NOT-TAKING KEPPRA 1000 MG TABLET 1 TAB ORALLY THREE TIMES DAILY NOT-TAKING GABAPENTIN 300 MG CAPSULE 1 CAPSULE ORALLY TID NOT-TAKING NAPROXEN 375 MG TABLET 1 TABLET WITH FOOD OR MILK NEEDED ORALLY EVERY 12 HRS MEDICATION LIST REVIEWED AND RECONCILED WITH THE PATIENT PAST MEDICAL HISTORY ASTHMA BACK PAIN SEIZURE DISORDER ALLERGIES PENICILLIN (FOR ALLERGIES USE ONLY): ANAPHYLAXIS - ALLERGY SURGICAL HISTORY DENIES PAST SURGICAL HISTORY FAMILY HISTORY FATHER: UNKNOWN MOTHER: UNKNOWN SIBLINGS: UNKNOWN DAUGHTER(S): ALIVE 1 SON(S) , 1 DAUGHTER(S) - HEALTHY. ADOPTED BY GRANDMOTHER, NO KNOWLEDGE OF FAMILY HISTORY. SOCIAL HISTORY GENERAL: TOBACCO USE ARE YOU A:CURRENT SMOKER ARE YOU INTERESTED IN QUITTING?NOT READY TO QUIT COUNSELED THE PATIENT ON SMOKING EFFECTS, EDUCATION [id number]/19/2019 HOW MANY CIGARETTES A DAY DO YOU SMOKE?6-10 HOW SOON AFTER YOU WAKE UP DO YOU SMOKE YOUR FIRST CIGARETTE?6-30 MIN HOW OFTEN DO YOU SMOKE CIGARETTES?EVERY DAY PATIENT COUNSELED ON THE DANGERS OF TOBACCO USE AND URGED TO QUIT:06/12/2019 HIV / HEP-C SCREENING HIV TEST OFFERED TO PATIENT:YES DATE OFFERED:01/04/2017 TEST ACCEPTED:YES OTHERS AT HOME: NONE. EDUCATION LEVEL OF EDUCATION:HIGH SCHOOL DIET: REGULAR. LANGUAGE LANGUAGES SPOKEN:WELSH BMI CARE GOAL FOLLOW-UP ABOVE NORMAL BMI FOLLOW-UPLIFESTYLE EDUCATION REGARDING DIET RECREATIONAL DRUG USE DRUG USE?NO EXERCISE: NO REGULAR EXERCISE. LEARNING BARRIERS / SPECIAL NEEDS CHANGE FROM LAST VISIT?YES BARRIERS TO LEARNING?NO HEARING IMPAIRED?NO VISION IMPAIRED?NO COGNITIVELY IMPAIRED?NO READINESS TO LEARN?YES LEARNING PREFERENCES?NO LEARNING CAPABILITIES PRESENT?YES EMOTIONAL BARRIERS?NO SPECIAL DEVICES?NO E BUSINESS PROJECT MANAGER NEEDED?NO PAIN CLINIC PFS, CLERGY, PUBLIC HEALTH REFERRALS HAS THE PATIENT BEEN EDUCATED REGARDING HIS/HER PLAN OF CARE?YES HAS THE PATIENT BEEN EDUCATED REGARDING PAIN, THE RISK FOR PAIN, THE IMPORTANCE OF EFFECTIVE PAIN MANAGEMENT, AND THE PAIN ASSESSMENT PROCESS?YES LATEX QUESTIONNAIRE LATEX ALLERGY : HAVE YOU EVER DEVELOPED ANY TYPE OF REACTION AFTER HANDLING LATEX PRODUCTS SUCH RUBBER GLOVES, CONDOMS, DIAPHRAGMS, BALLOONS, SOCKS, OR UNDERWEAR?NO LATEX ALLERGY : HAVE YOU EVER DEVELOPED ANY TYPE OF REACTION DURING OR AFTER DENTAL APPOINTMENT, VAGINAL/RECTAL EXAMINATION, SURGICAL PROCEDURE, OR ANY OTHER EXPOSURE?NO LATEX RISK : HAVE YOU EVER HAD ANY DIFFICULTY BREATHING OR HIVES AFTER EATING OR HANDLING ANY FRUITS, OR VEGETABLES; SUCH KIWI, BANANAS, STONE FRUITS, OR CHESTNUTSNO LATEX RISK : DO YOU HAVE A PREVIOUS PERSONAL HISTORY OF MORE THAN NINE SURGERIES, SPINA BIFIDA, OR REPEATED CATHERIZATIONS? NO LATEX RISK : ARE YOU FREQUENTLY EXPOSED TO LATEX PRODUCTS IN YOUR OCCUPATION?NO DATE ASKED : 03/01/2019 CAFFEINE CAFFEINE USE?YES ADVANCE DIRECTIVE ADVANCE DIRECTIVE DISCUSSED WITH PATIENT:YES PT DOES NOT HAVE ANY ADVANCED DIRECTIVES AND HE DECLINED HCP INFORMATION AT THIS TIME. VOODOO [id number] ANABAPTISM NO QUAKER BELIEFS THAT WOULD IMPACT HEALTH CARE. MARITAL STATUS: SINGLE. ALCOHOL SCREENING DID YOU HAVE A DRINK CONTAINING ALCOHOL IN THE PAST YEAR?NO POINTS0 INTERPRETATIONNEGATIVE OCCUPATION: UNEMPLOYED. SEXUAL HX HAD SEX IN THE LAST 12 MONTHS (VAGINAL, ORAL, OR ANAL)?YES WITHWOMEN ONLY REVIEWED 10/12/17 1400 LASREVIEWED WITH PATIENT 06/28/18 1051 JSREVIEWED WITH PT. 08/01/18 0901 BVREVEIWED WITH PT 10/10/18 1050 BV REVIEWED WITH PATIENT 06/12/19 1104 JS. HOSPITALIZATION/MAJOR DIAGNOSTIC PROCEDURE PNEUMONIA REVIEW OF SYSTEMS REVIEWED BY: PROVIDER: BRIANA CHAN . CONSTITUTIONAL: ANY CHANGE IN YOUR MEDICAL CONDITION? NO . CHILLS NO . FEVER NO . INFECTION: DO YOU HAVE NEW INFECTIONS? NO . DO YOU HAVE HISTORY OF MRSA? NO . MUSCULOSKELETAL: ANY NEW PATTERNS OF PAIN OR NUMBNESS? NO . GASTROENTEROLOGY: ANY NEW CHANGE IN BOWEL CONTROL? NO . GENITOURINARY: ANY NEW CHANGE IN BLADDER CONTROL? NO . IS THERE A CHANCE YOU COULD BE ? NO . HEMATOLOGY/LYMPH: DO YOU TAKE ANY BLOOD THINNERS? (FOR EXAMPLE- COUMADIN, PLAVIX, AGGRENOX, PLATEL, PRADAXA, OR XARELTO) NO . WHEN WAS YOUR LAST DOSE? DATE: TIME: . NEUROLOGY: HAVE YOU FALLEN IN THE PAST 12 MONTHS? NO . ANY NEW EXTREMITY NUMBNESS OR WEAKNESS? YES, STATES NUMBNESS AND WEAKNESS IN BILATERAL LEGS . CARDIOLOGY: DO YOU HAVE A PACEMAKER OR DEFIBRILLATOR? NO . RESPIRATORY: HAVE YOU BEEN SICK IN THE PAST WEEK? NO . FEVER NO . FLU LIKE SYMPTOMS? NO . COUGH NO . INTEGUMENTARY: DO YOU HAVE ANY RASHES OR OPEN SORES? NO . ALLERGIC/IMMUNO: ARE YOU ALLERGIC TO IV DYE? NO . ANY NEW ALLERGIES? NO . PSYCHIATRIC: DO YOU HAVE THOUGHTS OF HURTING YOURSELF OR SOMEONE ELSE? NO . ARE YOU ABUSED, NEGLECTED, OR IN AN UNSAFE ENVIRONMENT? NO . ENDOCRINOLOGY: ARE YOU DIABETIC? NO . OTHER: DO YOU NEED ANY PRESCRIPTIONS? YES . IF YES, PLEASE LIST: ____MOBIC AND ROBAXIN . ANY NEW PROBLEMS WITH YOUR MEDICATIONS? YES, STATES HE RAN OUT OF MEDS BECAUSE HE NEVER GOT A REFILL . WHEN DID YOU LAST EAT? ____ . WHEN DID YOU LAST DRINK? ____ . WHAT DID YOU LAST DRINK? ____ . NAME OF PERSON DRIVING YOU HOME? ____ . DO YOU HAVE ANY OTHER QUESTIONS OR CONCERNS NO . VITAL SIGNS WT 204 LBS, HT 72 IN, BMI 27.66 INDEX, BP 108/63 MM HG, HR 57 /MIN, RR 18 /MIN, TEMP 96.5 F, OXYGEN SAT % 97%, SAFE IN ENV? (Y/N) YES, NA INITIALS CT 11:02, REVIEWED BY: FLORECITA. EXAMINATION GENERAL EXAMINATION: GENERALAWAKE,ALERT ,PLEAASANT . PSYCHAFFECT NORMAL . LUNGS:LUNG WOODY ARE CLEAR TO AUSCULTATION BILATERALLY. GOOD MOVEMENT OF AIR . HEART:S1, S2 IN A REGULAR RATE AND RHYTHM. NO SIGNIFICANT MURMURS, RUBS OR GALLOPS NOTED . LUMBAR SACRAL SPINESPECIFIC POINT TENDERNESS OVER BILAT. SIJ.MILD WEAKNESS NOTED OVER LEFT LEG W MST. ASSESSMENTS INTERVERTEBRAL DISC DISORDER WITH RADICULOPATHY OF LUMBAR REGION - M51.16 (PRIMARY) TREATMENT INTERVERTEBRAL DISC DISORDER WITH RADICULOPATHY OF LUMBAR REGION REFILL ROBAXIN-750 TABLET, 750 MG, 1 TABLET, ORALLY, Q8H, 30 DAY(S), 45, REFILLS 1 REFILL MOBIC TABLET, 15 MG, 1 TABLET, ORALLY, ONCE A DAY, 30 DAY(S), 30, REFILLS 0 NOTES: L4/5 LESI. PREVENTIVE MEDICINE PAIN CLINIC TEACHING: PROCEDURE TEACHING PRINTED INFORMATION ON LUMBAR EPIDURAL STEROID INJECTION GIVEN TO AND REVIEWED WITH P. ALONG WITH PRINTED PRE-PROCEDURE INSTRUCTIONS AND PT. VERBALIZED UNDERSTANDING. AD. PROCEDURE CODES FA211 ESTABILISHED PATIENT [facility] CHARGE DISPOSITION & COMMUNICATION FOLLOW UP POST (REASON: L4/5 LESI) ELECTRONICALLY SIGNED BY DUSTIN GRACIA ON 06/27/2019 AT 02:50 PM EST DISCLAIMER : THIS IS A VISIT SUMMARY EXTRACTED FROM THE [employer] CHART. IT IS NOT A COPY OF THE [employer] PROGRESS NOTE. [place]
== END ==
LOC: M PAIN 10:30
PROVIDERS: ATTEND Nurse Practitioner Family
DX: M51.16 Intervertebral disc disorders with radiculopathy, lumbar region (principal); J45.909 Unspecified asthma, uncomplicated; F17.210 Nicotine dependence, cigarettes, uncomplicated; Z88.0 Allergy status to penicillin; Z79.899 Other long term (current) drug therapy

== ENCOUNTER 2019-08-18 19:59 | Emergency (ER) | payer OTHER ==
[~2019-08-18] VITALS: Ht 180.3 cm; Wt 96.7 kg
[2019-08-18] MEDS ORDERED: ZOLP10TA2 PO (20:09)
[2019-08-18 20:41] LABS: HEMATOCRIT 48.2 % (42.0-52.0); HEMOGLOBIN 15.4 g/dl (13.5-17.5); MEAN CORPUSCULAR HEMOGLOBIN 25.8 pg (27.0-33.0); MEAN CORPUSCULAR VOLUME 80.7 fl (80.0-96.0); PLATELET COUNT, AUTOMATED 232 10^3/uL (150-450); RED BLOOD COUNT 5.97 10^6/uL (4.30-6.10)
[2019-08-18] MEDS ORDERED: LORazepam 2 MG/ML VIAL (J2060) IV PRN (20:45)
[2019-08-18 20:47] LABS: WHITE BLOOD COUNT 9.5 10^3/uL (4.0-10.0)
[2019-08-18 21:12] LABS: ALBUMIN 4.2 GM/DL (3.2-5.2); ALT/SGPT 18 U/L (12-78); BILIRUBIN,DIRECT 0.1 MG/DL (0.0-0.2); BILIRUBIN,TOTAL 0.4 MG/DL (0.2-1.0); BLOOD UREA NITROGEN 15 MG/DL (7-18); CALCIUM LEVEL 8.6 MG/DL (8.5-10.1); CARBON DIOXIDE LEVEL 28 MEQ/L (21-32); CHLORIDE LEVEL 106 MEQ/L (98-107); CK-MB VALUE MASS < 1.0 NG/ML (<3.6); CPK CREATINE PHOSPHOKINASE 174 U/L (39-308); CREATININE FOR GFR 1.13 MG/DL (0.70-1.30); GLOMERULAR FILTRATION RATE > 60.0 (>60); GLUCOSE, FASTING 99 MG/DL (70-100); MB/CK RELATIVE INDEX 0.57 (< OR =4); POTASSIUM SERUM 3.6 MEQ/L (3.5-5.1); SODIUM LEVEL 140 MEQ/L (136-145); TOTAL PROTEIN 7.7 GM/DL (6.4-8.2); TROPONIN I < 0.02 NG/ML (< 0.10)
--- NOTE | 2019-08-18 21:15 | REPVR ---
PROCEDURE INFORMATION: Exam: CT Head Without Contrast Exam date and time: 08/18/2019 8:58 PM Age: 39 years old Clinical indication: Pain; Headache; Additional info: Head injury TECHNIQUE: Imaging protocol: Computed tomography of the head without contrast. Radiation optimization: All CT scans at this facility use at least one of these dose optimization techniques: automated exposure control; mA and/or kV adjustment per patient size (includes targeted exams where dose is matched to clinical indication); or iterative reconstruction. COMPARISON: No relevant prior studies available. FINDINGS: Brain: No intracranial mass, mass effect or midline shift. No acute intracranial hemorrhage. No CT evidence of acute cortical infarct. Benign incidental posterior fossa cyst Ventricles: Ventricles, cisterns, and sulci are normal in size for age. Bones/joints: No calvarial fracture or destructive process. Sinuses: Imaged paranasal sinuses are clear. Mastoid air cells: Mastoid air cells are normally aerated. Orbits: Imaged orbits are unremarkable. Soft tissues: No focal extracranial soft tissue swelling. IMPRESSION: No acute or concerning focal intracranial abnormality. Electronically signed by: Derek Lopez On 08/18/2019 21:14:54 PM
--- NOTE | 2019-08-18 21:20 | REPVR ---
PROCEDURE INFORMATION: Exam: CT Cervical Spine Without Contrast Exam date and time: 08/18/2019 8:58 PM Age: 39 years old Clinical indication: Neck pain; Additional info: Seizure, fall TECHNIQUE: Imaging protocol: Computed tomography images of the cervical spine without contrast. Radiation optimization: All CT scans at this facility use at least one of these dose optimization techniques: automated exposure control; mA and/or kV adjustment per patient size (includes targeted exams where dose is matched to clinical indication); or iterative reconstruction. COMPARISON: CT Spine,cervical w/o contrast 01/21/2016 5:26 PM FINDINGS: Vertebrae: No segmental vertebral malalignment. Vertebral body height is maintained at all levels. No acute fracture. No destructive or blastic cervical spine osseous lesion. Discs/Spinal canal/Neural foramina: Intervertebral disc spaces are appropriate for age. Soft tissues: Soft tissues show no concerning abnormality or asymmetry. Lungs: Imaged lung apices demonstrate no concerning abnormality. Pleural space: No apical pneumothorax. IMPRESSION: No acute fracture or traumatic segmental cervical malalignment. Electronically signed by: Derek Lopez On 08/18/2019 21:20:32 PM
[2019-08-18 21:23] LABS: ATYPICAL LYMPH 5 % (0-5); BASOPHILS 1 % (0-1); EOSINOPHILS 3 % (0-3); LYMPHOCYTES 62 % (16-44); MONOCYTES 2 % (0-5); NEUTROPHILS 26 % (28-66)
[2019-08-18 21:24] LABS: ANISOCYTOSIS 1+; OVALOCYTES 1+; PLATELET ESTIMATE NORMAL (NORMAL); POIKILOCYTOSIS 1+
[2019-08-18] MEDS ORDERED: NS IV ONE (22:45)
[2019-08-18] MEDS ORDERED: PHENYTOIN IV ONE (22:45)
[2019-08-18] MEDS ORDERED: BRIV50TA PO (23:07)
[2019-08-19 00:01] VITALS: BP 137/99
--- NOTE | 2019-08-19 06:33 | ECGEPIP ---
[facility] - ED Test Date: 2019-08-18 Pat Name: PAULINA VUONG Department: Room: - Gender: Male Therapeutic Radiologist: rohith : 1980 Requested By: DAVID DUMONT Order Number: [id number] Reading MD: Cl Mills Measurements Intervals [place] Rate: 55 P: 18 ME: 169 QRS: 48 QRSD: 96 T: 18 QT: 408 QTc: 392 Interpretive Statements SINUS BRADYCARDIA NO PRIOR ECG FOR COMPARISON Electronically Signed on 08-19-2019 6:33:09 EST by Cl Mills
== END 2019-08-18 23:59 | disposition home or self-care (01) ==
LOC: M ED 19:59
DX: G40.909 Epilepsy, unspecified, not intractable, without status epilepticus (principal); R00.1 Bradycardia, unspecified; K21.9 Gastro-esophageal reflux disease without esophagitis; H40.9 Unspecified glaucoma; J45.909 Unspecified asthma, uncomplicated; Z79.899 Other long term (current) drug therapy; Z88.0 Allergy status to penicillin; Z91.14 Patient's other noncompliance with medication regimen
CPT/HCPCS: 70450; 72125; 80048; 80076; 82550; 82553; 83605; 84443; 85025; 93005; 93041; 94760; 96374; 99285; J1165

== ENCOUNTER 2020-03-11 20:58 | Emergency (ER) | payer OTHER ==
[~2020-03-11] VITALS: Ht 180.3 cm; Wt 73.6 kg
[~2020-03-11 20:58] MED LIST changes: +QUET100T2 PO; -QUET1TAB8 PO; +ZOLP10TA2 PO
[2020-03-11] MEDS ORDERED: ALPRAZolam 0.5 MG TAB PO ONE (22:30)
[2020-03-11 22:45] VITALS: BP 140/86
== END 2020-03-11 22:48 | disposition home or self-care (01) ==
LOC: M ED 20:58
DX: F43.0 Acute stress reaction (principal); F17.200 Nicotine dependence, unspecified, uncomplicated

== ENCOUNTER 2020-03-16 22:11 | Emergency (ER) | payer OTHER ==
[~2020-03-16] VITALS: Ht 180.3 cm; Wt 86.2 kg
[2020-03-16 22:12] VITALS: BP 145/63
[2020-03-17] MEDS ORDERED: KETOROLAC 60MG 2ML VIAL IM ONE (00:30)
--- NOTE | 2020-04-17 09:05 | REP ---
RIGHT ANKLE X-RAY: HISTORY: Trauma, pain. TECHNIQUE: AP, lateral, bilateral oblique views of the right ankle. FINDINGS: No acute fracture or dislocation. Structures, joint spaces and surrounding soft tissues are age appropriate. The ankle mortise is intact. IMPRESSION: Normal right ankle radiographs. No acute fracture or dislocation. MTDD
== END 2020-03-17 01:35 | disposition home or self-care (01) ==
LOC: M ED 22:11
DX: S99.911A Unspecified injury of right ankle, initial encounter (principal); W18.49XA Other slipping, tripping and stumbling without falling, initial encounter; Y92.098 Other place in other non-institutional residence as the place of occurrence of the external cause; Y93.01 Activity, walking, marching and hiking; Y99.8 Other external cause status; G40.909 Epilepsy, unspecified, not intractable, without status epilepticus; F31.9 Bipolar disorder, unspecified; Z88.0 Allergy status to penicillin; Z79.899 Other long term (current) drug therapy
CPT/HCPCS: 29505; 73610; 96372; 99284; J1885

== ENCOUNTER 2020-09-15 15:24 | Emergency (ER) | payer OTHER ==
[~2020-09-15] VITALS: Ht 180.3 cm; Wt 92.2 kg
[2020-09-15 15:25] VITALS: BP 144/70
--- NOTE | 2020-09-15 16:01 | REP ---
INDICATION: TRAUMA/PAIN/SWELLING. COMPARISON: PA chest 02/24/2016. TECHNIQUE: Upright PA chest with 5 dedicated left rib images. FINDINGS: PA chest: The lung ramey are well inflated CP angles are sharply defined. There is no pleural effusion, lateral pleural thickening, apical scarring or pneumothorax. No evidence of an infiltrate or mass. The heart, mediastinal and hilar contours are normal. The aorta and airway are intact. Visualized clavicles, scapulae, humeral heads and ribs on the PA chest were unremarkable. There is a mild dextroconvex curve of the midthoracic spine. Left rib series: Posterior rib articulations were grossly intact no displaced rib fracture or focal rib lesion identified. No effusion, lateral pleural thickening or pneumothorax. Mild dextroconvex curvature midthoracic spine without acute bony abnormality in the spine on these images. IMPRESSION: Negative PA chest and left rib series for fracture or other acute finding. <Electronically signed by Melvin Pederson > 09/15/20 1550
--- OUTSIDE RECORDS SUMMARY | 2020-09-15 16:29 | CCD ---
Author Author Jayro Seaman Organization Unknown Address [address] [address] Phone Care Team Providers Care Brick Layer Name Role Phone Sandrita Seaman PCP Allergies, Adverse Reactions, Alerts No Data in Section Problem List Concept Problem Description Status Start Date Created Date Resolv ed Date Snomed Code Z72.0 Tobacco Use Disorder, Mild Active 09/02/2020 F43.12 Post-traumatic stress disorder, chronic Active 09/02/2020 Medications No Data in Section Social History Social History Element Description Concept Effective Date Smoking Status Unknown if ever smoked [id number] Immunizations No Data in Section Vital Signs No Data in Section Procedures Date Concept Id Description Targeted Site Concept Targeted Site Concept Type 09/02/2020 79897 Extended Individual Psychotherapy - 45 min CPT Patient has no history of implantable de vices Encounters Encounter Start Date End Date Encounter Type Description Diagnosis Di agnosis Desc Location Author First Name Author Last Name Npid Taxonomy Cod e Taxonomy Desc Phone Number Location Addr1 Location Addr2 Location [facility] Location [facility] Location [facility] [id number] 09/02/2020 09/02/2020 97019 Extended Individual Psych otherapy - 45 min Z72.0 Tobacco use disorder, mild [facility] Jurgen Remy [id number] Psychologist [phone] [address] [place], [place] [address] [facility] [address] Plan of Treatment No Data in Section Lab Results No Data in Section Instructions No Data in Section Insurance Providers Insurance Id Policy Effective Date Policy Thru Date Company N delgado [id number] 2020 [employer] bruner
--- OUTSIDE RECORDS SUMMARY | 2020-09-15 16:29 | CCD ---
Author Author FredyJayro Parish Organization Unknown Address [address] [place], [place] [address] [place] [address] Phone Care Team Providers Care Advocacy Director Name Role Phone Parish Daniel PCP Allergies, Adverse Reactions, Alerts No Data in Section Problem List Concept Problem Description Status Start Date Created Date Resolv ed Date Snomed Code Z72.0 Tobacco Use Disorder, Mild Active 08/28/2020 F43.12 Post-traumatic stress disorder, chronic Active 08/28/2020 Medications No Data in Section Social History Social History Element Description Concept Effective Date Smoking Status Unknown if ever smoked [id number] Immunizations No Data in Section Vital Signs No Data in Section Procedures Date Concept Id Description Targeted Site Concept Targeted Site Concept Type 08/28/2020 25873-26 [facility] Telemed E/M Lvl 3--Est pt CPT Patient has no history of implantable de vices Encounters Encounter Start Date End Date Encounter Type Description Diagnosis Di agnosis Desc Location Author First Name Author Last Name Npid Taxonomy Cod e Taxonomy Desc Phone Number Location Addr1 Location Addr2 Location [facility] Location [facility] Location [facility] [id number] 08/28/2020 08/28/2020 50421-24 [facility] Telemed E/M Lvl 3--Est p t Z72.0 Tobacco use disorder, mild [facility] Fredy Lugo [id number] Psychiatry [id number] [address] [place], [place] [address] [facility] [address] Plan of Treatment No Data in Section Lab Results No Data in Section Instructions No Data in Section Insurance Providers Insurance Id Policy Effective Date Policy Thru Date Company N delgado [id number] 2020 [employer] br[employer]er
--- OUTSIDE RECORDS SUMMARY | 2020-09-15 16:29 | CCD ---
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, un sp Active 09/09/2020 Z72.0 Tobacco Use Disorder, Mild Active 09/09/2020 F43.12 Post-traumatic stress disorder, chronic Active 09/09/2020 Medications No Data in Section Social History Social History Element Description Concept Effective Date Smoking Status Unknown if ever smoked [id number] Immunizations No Data in Section Vital Signs Encounter Date Height Ins Weight Lbs Bmi Bp Systolic Bp Diastoli c Oxygen Saturation Respiration Rate Pulse Rate Body Temp Head Circumference Heigh t Lying 09/09/2020 0.00 0.00 0.00 0 0 0.00 0 0 0.00 0.0 0.0 0 Procedures Date Concept Id Description Targeted Site Concept Targeted Site Concept Type 09/09/2020 05546-96 [facility] Telemed E/M Lvl 3--Est pt CPT Patient has no history of implantable de vices Encounters Encounter Start Date End Date Encounter Type Description Diagnosis Di agnosis Desc Location Author First Name Author Last Name Npid Taxonomy Cod e Taxonomy Desc Phone Number Location Addr1 Location Addr2 Location [facility] Location [facility] Location Zip [id number] 09/09/2020 09/09/2020 92284-60 [facility] Telemed E/M Lvl 3--Est p t F06.30 Mood disorder due to known physiological condition, unsp [facility] Fredy Lugo [id number] Psychiatry [phone] [address] [place], [place] [address] [facility] [address] Plan of Treatment No Data in Section Lab Results No Data in Section Instructions No Data in Section Functional Cognitive Status No Data in Section Insurance Providers Insurance Id Policy Effective Date Policy Thru Date Company N delgado [id number] 2020 [employer] Gabriel bruner
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
--- OUTSIDE RECORDS SUMMARY | 2020-09-15 16:30 | CCD ---
Author Author Seaman Jayro Mcguiret Organization Unknown Address [address] [address] Phone Care Team Providers Care Ballistician Name Role Phone Sandrita Seaman PCP Allergies, Adverse Reactions, Alerts No Data in Section Problem List Concept Problem Description Status Start Date Created Date Resolv ed Date Snomed Code Z72.0 Tobacco Use Disorder, Mild Active 07/02/2020 F43.12 Post-traumatic stress disorder, chronic Active 07/02/2020 Medications Rx Norm Medication Route Route Concept Start Date Stop Date Dosage Jon quency Duration Formula Strength Dosage Form Dosage Form Code Dosage Description Medication Id Account Npid Author First Name Author Last Name Taxonomy Code Taxonomy Desc Phone Number [id number] prazosin by mouth [id number] 06/10/2020 08/09/2020 at bedtime 30 1 mg capsule 66672 [id number] [facility] [id number] Psych[facility] y [phone] [id number] pyridoxine (vitamin B6) by mouth X71845 06/10/2020 08/09/2020 o nce a day 30 100 mg tablet 72164 173753 [id number] Edgard Block [id number] Psychiatry [id number] Social History Social History Element Description Concept Effective Date Smoking Status Unknown if ever smoked [id number] Immunizations No Data in Section Vital Signs No Data in Section Procedures Date Concept Id Description Targeted Site Concept Targeted Site Concept Type 07/01/2020 76890 Extended Individual Psychotherapy - 45 min CPT Patient has no history of implantable de vices Encounters Encounter Start Date End Date Encounter Type Description Diagnosis Di agnosis Desc Location Author First Name Author Last Name Npid Taxonomy Cod e Taxonomy Desc Phone Number Location Addr1 Location Addr2 Location City Location Sta Location Zip [id number] 07/01/2020 07/01/2020 21172 Extended Individual Psych otherapy - 45 min Z72.0 Tobacco use disorder, mild [facility] Jurgen Remy [id number] Psychologist [id number] [address] [address] Plan of Treatment No Data in Section Lab Results No Data in Section Instructions No Data in Section Insurance Providers Insurance Id Policy Effective Date Policy Thru Date Company N delgado [id number] 2020 [employer] Micah bruner
--- OUTSIDE RECORDS SUMMARY | 2020-09-15 16:30 | CCD ---
Author Author SeamanJayro felixt Organization Unknown Address [address] [address] Phone Care Team Providers Care Elevator Dispatcher Name Role Phone Sandrita Seaman PCP Allergies, Adverse Reactions, Alerts No Data in Section Problem List Concept Problem Description Status Start Date Created Date Resolv ed Date Snomed Code Z72.0 Tobacco Use Disorder, Mild Active 07/22/2020 F43.12 Post-traumatic stress disorder, chronic Active 07/22/2020 Medications Rx Norm Medication Route Route Concept Start Date Stop Date Dosage Jon quency Duration Formula Strength Dosage Form Dosage Form Code Dosage Description Medication Id Account Npid Author First Name Author Last Name Taxonomy Code Taxonomy Desc Phone Number [id number] prazosin by mouth [id number] 06/10/2020 08/09/2020 at bedtime 30 1 mg capsule 47606 907227 [id number] [facility] [id number] Psychiatr y [phone] 636896 pyridoxine (vitamin B6) by mouth [id number] 06/10/2020 08/09/2020 o nce a day 30 100 mg tablet 73530 924040 [phone] Edgard Block [id number] Psychiatry [id number] Social History Social History Element Description Concept Effective Date Smoking Status Unknown if ever smoked [id number] Immunizations No Data in Section Vital Signs No Data in Section Procedures Date Concept Id Description Targeted Site Concept Targeted Site Concept Type 07/22/2020 41573 Extended Individual Psychotherapy - 45 min CPT Patient has no history of implantable de vices Encounters Encounter Start Date End Date Encounter Type Description Diagnosis Di agnosis Desc Location Author First Name Author Last Name Npid Taxonomy Cod e Taxonomy Desc Phone Number Location Addr1 Location Addr2 Location City Location Sta Location Zip [id number] 07/22/2020 07/22/2020 33892 Extended Individual Psych otherapy - 45 min Z72.0 Tobacco use disorder, mild [facility] Seamankeerthi Remy [id number] [id number] Psychologist [id number] [address] [address] Plan of Treatment No Data in Section Lab Results No Data in Section Instructions No Data in Section Insurance Providers Insurance Id Policy Effective Date Policy Thru Date Company N delgado [id number] 2020 [employer] Micah bruner
--- OUTSIDE RECORDS SUMMARY | 2020-09-15 16:30 | CCD ---
Author Author Jayro Seaman Organization Unknown Address [address] [address] Phone Care Team Providers Care Gas Main Fitter Name Role Phone Sandrita Seaman PCP Allergies, Adverse Reactions, Alerts No Data in Section Problem List Concept Problem Description Status Start Date Created Date Resolv ed Date Snomed Code Z72.0 Tobacco Use Disorder, Mild Active 08/12/2020 F43.12 Post-traumatic stress disorder, chronic Active 08/12/2020 Medications No Data in Section Social History Social History Element Description Concept Effective Date Smoking Status Unknown if ever smoked [id number] Immunizations No Data in Section Vital Signs No Data in Section Procedures Date Concept Id Description Targeted Site Concept Targeted Site Concept Type 08/12/2020 70461 Extended Individual Psychotherapy - 45 min CPT Patient has no history of implantable de vices Encounters Encounter Start Date End Date Encounter Type Description Diagnosis Di agnosis Desc Location Author First Name Author Last Name Npid Taxonomy Cod e Taxonomy Desc Phone Number Location Addr1 Location Addr2 Location [facility] Location [facility] Location [facility] [id number] 08/12/2020 08/12/2020 84374 Extended Individual Psych otherapy - 45 min Z72.0 Tobacco use disorder, mild [facility] Jurgen Remy [id number] Psychologist [id number] [address] [place], [place] [address] [facility] [address] Plan of Treatment No Data in Section Lab Results No Data in Section Instructions No Data in Section Insurance Providers Insurance Id Policy Effective Date Policy Thru Date Company N delgado [id number] 2020 [employer] MNigel bruner
--- OUTSIDE RECORDS SUMMARY | 2020-09-15 16:30 | CCD ---
Author Author [facility] Organization [facility] Address Unknown Phone Unavailable Care Team Providers Care Manager Ecommerce Name Role Phone Crissy Acevedon Unavailable PROBLEMS Type Condition ICD9-CM Code NIF14-DE Code Onset Dates Condition S tatus SNOMED Code Notes Problem Other chronic pain G89.29 Active 18788250 Problem Seizures R56.9 Active 24701900 Problem Bipolar 1 disorder F31.9 Active 181667922 Problem Protruded lumbar disc M51.26 Active 94189161 Problem Sleep difficulties G47.9 Active 493700038 Problem Intervertebral disc disorder with radiculopathy of lumbar region M51.16 Active 484816513904155 Problem Myalgia M79.1 Active 48857108 Problem Sacroiliitis M46.1 Active 41156659 Problem Sacroiliitis, not elsewhere classified M46.1 A ctive 90974771 Problem Protrusion of lumbar intervertebral disc M51.26 Active 299655112 ALLERGIES Allergen (clinical drug ingredient) Drug/Non Drug Allergy do cumented on EMR Reaction Allergy Type Onset Date Status Penicillin (For Allergies Use Only) Anaphylaxis Drug Aller gy Active ENCOUNTERS from 1979 to 2020-07-02 Encounter Location Date Provider Diagnosis [facility] [address] [place] [address] May, Paulina Acevedo IMMUNIZATIONS No Information SOCIAL HISTORY Tobacco Use: Social History Observation Description Date Details (start date - stop date) Current Smoker Sex Assigned At : Social History Observation Description Sex Assigned At Unknown Education: Question Answer Notes Level of Education: High School Language: Question Answer Notes Languages spoken: Korean Scientology: Question Answer Notes [employer]ology 08 [employer] No religion beliefs that would impact health care. Sexual Hx: Question Answer Notes Had sex in the last 12 months (vaginal, oral, or anal)? Yes with Women only Alcohol Screening: Question Answer Notes Did you have a drink containing alcohol in the past year? No Points 0 Interpretation Negative BMI Care Goal Follow-Up Question Answer Notes Above Normal BMI Follow-Up Lifestyle education regarding t Tobacco Use: Question Answer Notes Are you a: current smoker Patient counseled on the dangers of tobacco use and urged to quit: 06/12/2019 How many cigarettes a day do you smoke? 6-10 Are you interested in quitting? Not ready to quit Counseled the patient on smoking effects, education provided 06/12/2019 REASON FOR REFERRAL No Information VITAL SIGNS No information MEDICATIONS Medication SIG (Take, Route, Frequency, Duration) Notes Start Da te End Date Status HydrOXYzine HCl 25 MG 3 tabs Orally three times daily Active Ventolin HFA 108 (90 Base) MCG/ACT 2 puffs as needed Inhalation lina ry 4 hrs Active Robaxin-750 750 MG 1 tablet Orally q8h for 30 day(s) 2017 Active SEROquel 100 MG 1 tablet Orally Once a day Active Gabapentin 300 MG 1 capsule Orally tid for 30 day(s) Not-Taking Naproxen 375 MG 1 tablet with food or milk as needed Orally every 12 hrs Not-Taking Briviact 50 MG 1 tablet Orally Twice a day Active Mobic 15 MG 1 tablet Orally Once a day for 30 day(s) 2017 Active Keppra 1000 MG 1 tab Orally three times daily Not-Taking PROCEDURES No Information RESULTS No Results REASON FOR VISIT Discharged Patient?? MEDICAL (GENERAL) HISTORY Type Description Date Medical History asthma Medical History back pain Medical History seizure disorder Surgical History No know Surgical history Hospitalization History pneumonia Goals Section No Information Health Concerns No Information MEDICAL EQUIPMENT No Information MENTAL STATUS No Information FUNCTIONAL STATUS No Information ASSESSMENTS No Information PLAN OF TREATMENT Medication Medication Name Sig Start Date Stop Date Robaxin-750 750 MG 1 tablet Orally q8h for 30 day(s) Dec, 8 Mobic 15 MG 1 tablet Orally Once a day for 30 day(s) Dec, Insurance Providers Payer Name Payer Address Payer Phone Insured Name Patient Relati onship to Insured Coverage Start Date Coverage End Date [facility] [address] [facility] [address] PAULINA VUONG self
--- OUTSIDE RECORDS SUMMARY | 2020-09-15 16:30 | CCD ---
Author Author SeamanJayro felixt Organization Unknown Address [address] [address] Phone Care Team Providers Care Beam Carrier Hauler Pusher Name Role Phone Sandrita Seaman PCP Allergies, [...] Name Taxonomy Code Taxonomy Desc Phone Number [phone] prazosin by mouth J65878 06/10/2020 08/09/2020 at bedtime 30 1 mg capsule 11192 [id number] [phone] [facility] [id number] Psychiatr y [phone] 409706 pyridoxine (vitamin B6) by mouth J83546 06/10/2020 08/09/2020 o nce a day 30 100 mg tablet 53505 959953 [phone] Edgard Block [id number] Psychiatry [id number] Social History Social History Element Description Concept Effective Date Smoking Status Unknown if ever smoked [id number] Immunizations No Data in Section Vital Signs No Data in Section Procedures Date Concept Id Description Targeted Site Concept Targeted Site Concept Type 07/22/2020 35154-D6-66 [facility]" psychotherapy CPT Patient has no history of implantable de vices Encounters Encounter Start Date End Date Encounter Type Description Diagnosis Di agnosis Desc Location Author First Name Author Last Name Npid Taxonomy Cod e Taxonomy Desc Phone Number Location Addr1 Location Addr2 Location City Location Sta te Location Zip [id number] 07/22/2020 07/22/2020 [address]89 [facility] 20" psychot herapy Z72.0 Tobacco use disorder, mild [facility] Sandrita [id number] [id number] Psychologist [id number] [address] [address] Plan of Treatment No Data in Section Lab Results No Data in Section Instructions No Data in Section Insurance Providers Insurance Id Policy Effective Date Policy Thru Date Company N delgado [id number] 2020 [employer] Micah bruner
[2020-09-15] MEDS ORDERED: HYDR-4571 PO ×2 (18:10→18:29)
[2020-09-15] MEDS ORDERED: NORCO, ANEXSIA 5/325MG TABLET (HYDROcodone/ACETAMINOPHEN) PO ONE (18:15)
== END 2020-09-15 18:47 | disposition home or self-care (01) ==
LOC: M ED 15:24
DX: S20.212A Contusion of left front wall of thorax, initial encounter (principal); W01.0XXA Fall on same level from slipping, tripping and stumbling without subsequent striking against object, initial encounter; Y92.9 Unspecified place or not applicable; Y93.9 Activity, unspecified; Y99.9 Unspecified external cause status; R56.9 Unspecified convulsions; F17.200 Nicotine dependence, unspecified, uncomplicated; Z79.899 Other long term (current) drug therapy; Z88.0 Allergy status to penicillin

== ENCOUNTER → 2021-03-24 | Outpatient (REF) | payer OTHER ==
[~2021-03-24] MED LIST changes: +HYDR-4571 PO
== END ==
LOC: M WUC 11:09
PROVIDERS: ATTEND Physician Assistant
DX: R31.9 Hematuria, unspecified (principal)

== ENCOUNTER → 2021-04-10 | Outpatient (REF) | payer OTHER ==
[~2021-04-10] MED LIST changes: +IBUP80TA PO; -LATU40TA; +LATU40TA2
== END ==
LOC: M SMT 12:51
PROVIDERS: ATTEND Urology
DX: R31.0 Gross hematuria (principal)

== ENCOUNTER 2021-08-24 14:23 | Emergency (ER) | payer MEDICAID, OTHER ==
[~2021-08-24] VITALS: Ht 180.3 cm; Wt 91.0 kg
[2021-08-24 14:23] VITALS: BP 116/71
[~2021-08-24 14:23] MED LIST changes: -IBUP80TA PO
[2021-08-24] MEDS ORDERED: IBUP80TA PO (16:20)
== END 2021-08-24 16:47 | disposition home or self-care (01) ==
LOC: M ED 14:23
DX: S93.401A Sprain of unspecified ligament of right ankle, initial encounter (principal); Y92.9 Unspecified place or not applicable; Y93.9 Activity, unspecified; Y99.9 Unspecified external cause status; F12.10 Cannabis abuse, uncomplicated; F17.200 Nicotine dependence, unspecified, uncomplicated; Z88.0 Allergy status to penicillin

== ENCOUNTER 2021-11-29 22:20 | Emergency (ER) | payer OTHER ==
[~2021-11-29] VITALS: Ht 180.3 cm; Wt 88.1 kg
[~2021-11-29 22:20] MED LIST changes: +IBUP80TA PO
[2021-11-29 22:21] VITALS: BP 142/85
== END 2021-11-30 00:32 | disposition left against medical advice (07) ==
LOC: M ED 22:20
DX: Z53.21 Procedure and treatment not carried out due to patient leaving prior to being seen by health care provider (principal)

== ENCOUNTER 2021-12-03 06:17 | Emergency (ER) | payer OTHER ==
[~2021-12-03] VITALS: Ht 180.3 cm; Wt 84.1 kg
[2021-12-03 08:35] LABS: BASO # 0.1 10^3/uL (0.0-0.2); BASO % 0.8 % (0.0-1.0); EOS # 0.3 10^3/uL (0.0-0.5); EOS % 2.5 % (0.0-3.0); HEMATOCRIT 45.4 % (42.0-52.0); HEMOGLOBIN 15.1 g/dl (13.5-17.5); LYMPH # 2.6 10^3/uL (1.5-5.0); LYMPH % 25.1 % (24.0-44.0); MEAN CORPUSCULAR HEMOGLOBIN 26.9 pg (27.0-33.0); MEAN CORPUSCULAR HGB CONC 33.3 g/dl (32.0-36.5); MEAN CORPUSCULAR VOLUME 80.8 fl (80.0-96.0); MONO # 0.7 10^3/uL (0.0-0.8); MONO % 6.6 % (2.0-8.0); NEUTROPHILS # 6.7 10^3/uL (1.5-8.5); NEUTROPHILS % 64.6 % (36.0-66.0); PLATELET COUNT, AUTOMATED 263 10^3/uL (150-450); RED BLOOD COUNT 5.62 10^6/uL (4.30-6.10); WHITE BLOOD COUNT 10.4 10^3/uL (4.0-10.0)
[2021-12-03 08:55] LABS: ALBUMIN 3.9 GM/DL (3.2-5.2); ALT/SGPT 24 U/L (12-78); BILIRUBIN,DIRECT 0.1 MG/DL (0.0-0.2); BILIRUBIN,TOTAL 0.6 MG/DL (0.2-1.0); BLOOD UREA NITROGEN 13 MG/DL (7-18); CALCIUM LEVEL 9.8 MG/DL (8.5-10.1); CARBON DIOXIDE LEVEL 27 MEQ/L (21-32); CHLORIDE LEVEL 110 MEQ/L (98-107); CREATININE FOR GFR 0.98 MG/DL (0.70-1.30); GLOMERULAR FILTRATION RATE > 60.0 (>60); GLUCOSE, FASTING 100 MG/DL (70-100); POTASSIUM SERUM 4.5 MEQ/L (3.5-5.1); SODIUM LEVEL 142 MEQ/L (136-145); TOTAL PROTEIN 7.8 GM/DL (6.4-8.2)
[2021-12-03] MEDS ORDERED: ISOVUE-370 76% 100ML VIAL As Ordered ONE (08:57)
[2021-12-03] MEDS ORDERED: KETOROLAC 30 MG/ML 1ML VIAL IV ONE (09:55)
[2021-12-03 10:21] VITALS: BP 138/91
== END 2021-12-03 10:49 | disposition home or self-care (01) ==
LOC: M ED 06:17
DX: S50.311A Abrasion of right elbow, initial encounter (principal); S30.0XXA Contusion of lower back and pelvis, initial encounter; V03.00XA Pedestrian on foot injured in collision with car, pick-up truck or van in nontraffic accident, initial encounter; M51.36 Other intervertebral disc degeneration, lumbar region; M41.34 Thoracogenic scoliosis, thoracic region; R56.9 Unspecified convulsions; J45.909 Unspecified asthma, uncomplicated; K21.9 Gastro-esophageal reflux disease without esophagitis; H40.9 Unspecified glaucoma; Z88.0 Allergy status to penicillin
CPT/HCPCS: 72128; 72131; 72190; 74177; 80048; 80076; 85025; 86850; 86900; 86901; 96374; 99283; J1885; Q9967

== ENCOUNTER 2022-05-29 19:13 | Emergency (ER) | payer OTHER ==
[2022-05-29] MEDS ORDERED: ISOVUE-370 76% 100ML VIAL As Ordered ONE (19:35)
[2022-05-29 20:17] LABS: BASO # 0.1 10^3/uL (0.0-0.2); BASO % 0.4 % (0.0-1.0); EOS # 0.1 10^3/uL (0.0-0.5); EOS % 0.6 % (0.0-3.0); HEMATOCRIT 46.4 % (42.0-52.0); HEMOGLOBIN 15.2 g/dl (13.5-17.5); LYMPH # 2.8 10^3/uL (1.5-5.0); LYMPH % 17.6 % (24.0-44.0); MEAN CORPUSCULAR HGB CONC 32.8 g/dl (32.0-36.5); MEAN CORPUSCULAR VOLUME 82.4 fl (80.0-96.0); MONO # 1.1 10^3/uL (0.0-0.8); MONO % 6.9 % (2.0-8.0); NEUTROPHILS # 11.9 10^3/uL (1.5-8.5); NEUTROPHILS % 74.1 % (36.0-66.0); PLATELET COUNT, AUTOMATED 256 10^3/uL (150-450); RED BLOOD COUNT 5.63 10^6/uL (4.30-6.10); WHITE BLOOD COUNT 16.1 10^3/uL (4.0-10.0)
[2022-05-29 20:49] LABS: RSV AMPLIFICATION NEGATIVE (NEGATIVE)
[2022-05-29 20:59] LABS: BILIRUBIN,DIRECT 0.2 MG/DL (0.0-0.2); BILIRUBIN,TOTAL 0.5 MG/DL (0.2-1.0); TOTAL PROTEIN 7.3 GM/DL (6.4-8.2)
[2022-05-29] MEDS ORDERED: MORPHINE 2 MG/ML 1ML VIAL IV ONE (21:25)
[2022-05-29 21:43] VITALS: BP 150/76
[2022-05-29] MEDS ORDERED: NORCO 5/325MG TABLET (HOME DOSE PACK) PO ONE (22:15)
[2022-05-29] MEDS ORDERED: TRAM50TA2 PO (22:21)
== END 2022-05-29 22:37 | disposition home or self-care (01) ==
LOC: EDBD 19:13 → M ED 19:13
DX: S42.022A Displaced fracture of shaft of left clavicle, initial encounter for closed fracture (principal); V18.4XXA Pedal cycle driver injured in noncollision transport accident in traffic accident, initial encounter; Y92.410 Unspecified street and highway as the place of occurrence of the external cause; F17.200 Nicotine dependence, unspecified, uncomplicated; Z79.899 Other long term (current) drug therapy; Z88.0 Allergy status to penicillin
CPT/HCPCS: 71260; 72190; 73000; 73030; 73060; 73080; 80047; 80076; 85025; 87631; 96374; 99284; J2270

== ENCOUNTER 2022-11-25 14:53 | Emergency (ER) | payer OTHER ==
[~2022-11-25] VITALS: Ht 180.3 cm; Wt 86.5 kg
[~2022-11-25 14:53] MED LIST changes: +TRAM50TA2 PO
[2022-11-25 14:56] VITALS: BP 131/77
== END 2022-11-25 16:30 | disposition home or self-care (01) ==
LOC: M ED 14:53
DX: M25.519 Pain in unspecified shoulder (principal); Z53.21 Procedure and treatment not carried out due to patient leaving prior to being seen by health care provider

== ENCOUNTER 2022-12-03 03:27 | Emergency (ER) | payer OTHER ==
[~2022-12-03] VITALS: Ht 180.3 cm; Wt 88.1 kg
[2022-12-03 03:28] VITALS: BP 122/82
== END 2022-12-03 05:51 | disposition left against medical advice (07) ==
LOC: M ED 03:27
DX: M25.511 Pain in right shoulder (principal); Z53.21 Procedure and treatment not carried out due to patient leaving prior to being seen by health care provider

== ENCOUNTER 2022-12-03 07:54 | Emergency (ER) | payer OTHER ==
[~2022-12-03] VITALS: Ht 180.3 cm; Wt 37.7 kg
[2022-12-03 08:55] VITALS: BP 115/75
== END 2022-12-03 09:23 | disposition home or self-care (01) ==
LOC: M ED 07:54
DX: M25.511 Pain in right shoulder (principal); R56.9 Unspecified convulsions

== ENCOUNTER 2022-12-04 01:18 | Emergency (ER) | payer OTHER ==
[~2022-12-04] VITALS: Ht 180.3 cm; Wt 87.4 kg
[2022-12-04 01:19] VITALS: BP 120/81
== END 2022-12-04 05:00 | disposition left against medical advice (07) ==
LOC: M ED 01:18
DX: R56.9 Unspecified convulsions (principal); Z53.21 Procedure and treatment not carried out due to patient leaving prior to being seen by health care provider

== ENCOUNTER 2023-01-17 12:07 | Emergency (ER) | payer OTHER ==
[~2023-01-17] VITALS: Ht 180.3 cm; Wt 85.4 kg
[2023-01-17] MEDS ORDERED: KETAMINE HCL 200MG/20ML VIAL IV ONE (13:05)
[2023-01-17] MEDS ORDERED: propofoL 200 MG/20 ML VIAL IV.PROC PRN (13:05)
[2023-01-17] MEDS ORDERED: NS 1,000 ML IV SCH (13:05)
[2023-01-17 14:53] VITALS: BP 150/79; TEMP 97.9; O2SAT 100
== END 2023-01-17 15:03 | disposition home or self-care (01) ==
LOC: M ED 12:07
DX: S43.004A Unspecified dislocation of right shoulder joint, initial encounter (principal); X50.0XXA Overexertion from strenuous movement or load, initial encounter; Y92.009 Unspecified place in unspecified non-institutional (private) residence as the place of occurrence of the external cause; Y93.89 Activity, other specified; Y99.8 Other external cause status; R56.9 Unspecified convulsions; F17.200 Nicotine dependence, unspecified, uncomplicated; Z88.0 Allergy status to penicillin

== ENCOUNTER → 2023-03-29 | Outpatient (REF) | payer OTHER ==
[2023-03-29 12:17] LABS: BASO # 0.1 10^3/uL (0.0-0.2); BASO % 0.8 % (0.0-1.0); EOS # 0.3 10^3/uL (0.0-0.5); EOS % 2.3 % (0.0-3.0); HEMATOCRIT 49.2 % (42.0-52.0); HEMOGLOBIN 15.9 g/dl (13.5-17.5); LYMPH # 4.1 10^3/uL (1.5-5.0); LYMPH % 37.6 % (24.0-44.0); MEAN CORPUSCULAR HEMOGLOBIN 26.6 pg (27.0-33.0); MEAN CORPUSCULAR HGB CONC 32.3 g/dl (32.0-36.5); MEAN CORPUSCULAR VOLUME 82.3 fl (80.0-96.0); MONO # 0.6 10^3/uL (0.0-0.8); MONO % 5.2 % (2.0-8.0); NEUTROPHILS # 5.9 10^3/uL (1.5-8.5); NEUTROPHILS % 53.7 % (36.0-66.0); PLATELET COUNT, AUTOMATED 273 10^3/uL (150-450); RED BLOOD COUNT 5.98 10^6/uL (4.30-6.10); WHITE BLOOD COUNT 10.9 10^3/uL (4.0-10.0)
[2023-03-29 12:35] LABS: ALBUMIN 4.1 G/DL (3.2-5.2); ALKALINE PHOSPHATASE 88 U/L (46-116); ALT/SGPT 14 U/L (7.0-40); AST/SGOT < 8 U/L (<34); BILIRUBIN,TOTAL 0.4 MG/DL (0.3-1.2); BLOOD UREA NITROGEN 9 MG/DL (9-23); CARBON DIOXIDE LEVEL 27 MMOL/L (20-31); CHLORIDE LEVEL 103 MMOL/L (98-107); CHOLESTEROL LEVEL 185 MG/DL (<200); CHOLESTEROL RISK RATIO 4.16 (<5); CREATININE FOR GFR 0.85 MG/DL (0.70-1.30); GLOMERULAR FILTRATION RATE > 60.0 (>60); GLUCOSE, FASTING 87 MG/DL (60-100); HDL CHOLESTEROL 44.4 MG/DL (>40); LDL CHOLESTEROL 100.6 MG/DL (<100); NON-HDL-C 140.6 MG/DL; SODIUM LEVEL 137 MMOL/L (136-145); THYROID STIMULATING HORMONE 2.943 uIU/ML (0.55-4.78); TOTAL 25(OH) VITAMIN D 25.2 NG/ML (20.0-100.0); TOTAL PROTEIN 7.5 G/DL (5.7-8.2); TRIGLYCERIDES LEVEL 200 MG/DL (<150)
[2023-03-29 12:37] LABS: HEMOGLOBIN A1c 5.1 % (4.0-6.0)
[2023-03-30 23:07] LABS: PSA TOTAL 0.7 ng/mL (0.0-4.0)
== END ==
LOC: M LAB REF 11:30
PROVIDERS: ATTEND Nurse Practitioner Family
DX: Z13.228 Encounter for screening for other metabolic disorders (principal)